=== PATIENT | female | born 1950 | race African-American/Black ===

== ENCOUNTER → 2016-08-09 | Outpatient (CLI) | payer MEDICARE, MEDICAID ==
[2016-03-26 14:23] VITALS: BP 126/71
[~2016-08-09] MED LIST: CYCL10TA2 PO; DOCU-27 PO; DRON2.5C PO; GABA-586 PO; HYDR-2672 PO; HYDR-2679 PO; OMEP20CA9 PO; OXYC-323 PO; OXYC1TAB7 PO; TIZA2CAP3 PO
--- NOTE | 2016-08-09 11:57 | RAD ---
EXAM: Lumbar spine, 3 views. HISTORY: Lower back pain. COMPARISON: 06/22/2016. FINDINGS: Frontal, lateral and coned sacral views of the lumbar spine are obtained. There is instrumented posterior spinal fusion and disc spacer placement with laminectomy decompression at L4-S1. There is straightening of lumbar lordosis. There is levoscoliosis centered at L4. There is degenerative endplate remodeling and facet arthropathy predominantly at the lower lumbar levels. There are multiple surgical clips and anastomotic sutures within the abdomen. There is a minimal anterior wedge deformity of L2, stable in appearance. IMPRESSION: 1. Instrumented using at L4-S1, stable in appearance. 2. Multilevel degenerative change, predominantly at the lower lumbar levels.
== END | disposition home or self-care (01) ==
LOC: RAD 10:56
PROVIDERS: ATTEND Neurological Surgery
DX: M43.26 Fusion of spine, lumbar region (principal); M41.86 Other forms of scoliosis, lumbar region; M12.88 Other specific arthropathies, not elsewhere classified, other specified site
CPT/HCPCS: 72100

== ENCOUNTER → 2016-08-31 | Outpatient (CLI) | payer MEDICARE, MEDICAID ==
[2016-03-26 14:23] VITALS: BP 126/71
--- NOTE | 2016-08-31 16:09 | KCIC ---
PROCEDURE CT lumbar spine without contrast. HISTORY Right radiculopathy. Post lumbar surgery 5 months ago. TECHNIQUE Axial images and coronal and sagittal re-formatted images are provided. One or more of the following individualized dose reduction techniques were utilized for this exam: 1. Automated exposure control. 2. Adjustment of the mA and/or kV according to patient's size. 3. Use of iterative reconstruction technique. COMPARISON March 24, 2016. FINDINGS There is pedicle screw and ahsan instrumentation with interbody bone cage devices at L4 through S1. Partial laminectomy was performed at L4-L5. Hardware is well-seated although bone cages do not yet appear incorporated. There is no perihardware lucency. There is straightening of lumbar lordosis but no subluxation. Vertebral body height is maintained throughout. Endplate irregularity is noted at L4-L5 which may be degenerative. Appearance is similar to prior. Degenerative disc disease and facet and ligamentum flavum hypertrophy are noted at L2-L3 without definite canal or foraminal compromise. Similar findings are noted at L3-L4. Streak artifact limits evaluation below L4. There is atheromatous disease in the abdominal aorta without aneurysm. There are clips in the gallbladder fossa and in the upper abdomen. IMPRESSION Postoperative findings from L4 through S1, without appreciable change from March. Electronically signed by: Abdiel Hwang MD (Aug 31, 2016 16:07:27)
== END | disposition home or self-care (01) ==
LOC: KCIC CT 12:17
PROVIDERS: ATTEND Neurological Surgery
DX: M54.16 Radiculopathy, lumbar region (principal); Z98.890 Other specified postprocedural states
CPT/HCPCS: 72131

== ENCOUNTER 2016-10-05 10:33 | Inpatient (IN) | payer MEDICARE, MEDICAID ==
[~2016-10-05] VITALS: Ht 160 cm; Wt 42.0 kg
--- NOTE | 2016-10-05 11:06 | EKG ---
[facility] [address] [place] [address] Test Date: 2016-10-05 Test Time: 10:59:07 Pat Name: MATA WILLINGHAM Department: Room: Gender: F Medical Lab Director: : 1950 Requested By: ADRYAN TURNER Order Number: [id number] Reading MD: Caryl Simon Measurements Intervals [place] Rate: 67 P: 56 NC: 148 QRS: 19 QRSD: 68 T: 68 QT: 402 QTc: 428 Interpretive Statements SINUS RHYTHM LEFT ATRIAL ABNORMALITY QRS(T) CONTOUR ABNORMALITY CONSISTENT WITH ANTEROSEPTAL INFARCT AGE UNDETERMINED T ABNORMALITY IN HIGH LATERAL LEADS Electronically Signed On 10-07-2016 21:49:31 CDT by Caryl Simon
[2016-10-05] MEDS ORDERED: fentaNYL PF VIAL 100 MCG/2 ML VIAL IV PRN ×2 (11:30→15:15)
--- NOTE | 2016-10-05 11:45 | RAD ---
Indication shortness of air. A single view of the chest was obtained and is compared to an examination 02/11/2016. The heart and pulmonary vessels appear normal. The lungs are clear of acute infiltrates. Nipple shadows are noted. There has not been a significant change in the appearance of the chest compared to the prior exam. IMPRESSION: No acute or focal process. No significant change
[2016-10-05 12:39] LABS: BASO # 0.1 x10^3/uL (0.0-0.2); BASO % 1 % (0-3); EOS % 1 % (0-3); HEMATOCRIT 33.6 % (36.0-47.0); HEMOGLOBIN 10.5 g/dL (12.0-15.5); LYMPH # 1.4 x10^3/uL (1.0-4.8); LYMPH % 26 % (24-48); MEAN CORPUSCULAR HEMOGLOBIN 26 pg (25-35); MEAN CORPUSCULAR HGB CONC 31 g/dL (31-37); MEAN CORPUSCULAR VOLUME 82 fL (79-100); MONO % 6 % (0-9); NEUT % 67 % (31-73); PLATELET COUNT 318 x10^3/uL (140-400); RED BLOOD COUNT 4.09 x10^6/uL (3.50-5.40); RED CELL DISTRIBUTION WIDTH 19.2 % (11.5-14.5); WHITE BLOOD COUNT 5.5 x10^3/uL (4.0-11.0)
[2016-10-05 12:52] LABS: BILIRUBIN,URINE NEGATIVE (NEG); GLUCOSE,URINE NEGATIVE (NEG); NITRITE,URINE NEGATIVE (NEG); PROTEIN,URINE NEGATIVE (NEG-TRACE); UROBILINOGEN,URINE 0.2 mg/dL (0.2 mg/dL)
[2016-10-05 12:53] LABS: CALCIUM 9.2 mg/dL (8.5-10.1); CREATININE 0.8 mg/dL (0.6-1.0); GFR 87.1; POTASSIUM 4.5 mmol/L (3.5-5.1)
[2016-10-05 12:55] LABS: ALBUMIN 3.4 g/dL (3.4-5.0); ALBUMIN/GLOBULIN RATIO 0.9 (1.0-1.7); TOTAL BILIRUBIN 0.4 mg/dL (0.2-1.0); TOTAL PROTEIN 7.4 g/dL (6.4-8.2)
[2016-10-05 12:59] LABS: BACTERIA,URINE 0 /HPF (0-FEW); RBC,URINE 0 /HPF (0-2); SQUAMOUS EPITHELIAL CELL,UR FEW /LPF; WBC,URINE 0 /HPF (0-4)
[2016-10-05] MEDS ORDERED: IPRATRPIUM/ALBUTEROL 0.5/2.5MG 3 ML NEBU. NEB ONE (14:00)
--- NOTE | 2016-10-05 15:01 | ED.ADGEN ---
Past Medical History Past Medical History: Bronchitis, Hypertension, Other Additional Past Medical Histor: chronic back pain Past Surgical History: Hysterectomy Additional Past Surgical Histo: 3 lumbar and 1 cervical back surgery for herniated disc Alcohol Use: None Drug Use: None Adult General Chief Complaint Chief Complaint: SHORTNESS OF BREATH HPI HPI Patient is a 66 year old and, history of back pain, bronchitis, who presents to the emergency department with a complaint of worsening shortness of breath and cough, also generalized weakness and occasional chest pain. Patient was seen by her primary care provider last week, that time was told that she was experiencing a prolonged cold. Patient states that her shortness of breath has become worse, and generalized weakness is worse, also generalized malaise and body aches with worsening of her chronic low back pain. Patient denies any focal weakness numbness or tingling, denies any nausea or vomiting, any injuries. Review of Systems Review of Systems Constitutional: Denies fever or chills. [] Eyes: Denies change in visual acuity. [] HENT: Denies nasal congestion or sore throat. [] Respiratory: Denies cough or shortness of breath. [] Cardiovascular: Denies chest pain or edema. [] GI: Denies abdominal pain, nausea, vomiting, bloody stools or diarrhea. [] : Denies dysuria. [] Musculoskeletal: Denies back pain or joint pain. [] Integument: Denies rash. [] Neurologic: Denies headache, focal weakness or sensory changes. [] Endocrine: Denies polyuria or polydipsia. [] Lymphatic: Denies swollen glands. [] Psychiatric: Denies depression or anxiety. [] Current Medications Current Medications Current Medications Medications (Trade) Dose Ordered Sig/Rosalind Start Time Stop Time Status Last Admin Dose Admin Acetaminophen (Tylenol) 650 mg PRN Q4HRS PRN 10/05/16 15:15 10/06/16 15:14 UNV Albuterol/ Ipratropium (Duoneb) 3 ml RTQID 10/05/16 16:00 10/06/16 15:59 UNV Fentanyl Citrate (Fentanyl 2ml Vial) 50 mcg PRN Q2HR PRN 10/05/16 15:15 10/06/16 15:14 UNV Nitroglycerin (Nitrostat) 0.4 mg PRN Q5MIN PRN 10/05/16 15:15 10/06/16 15:14 UNV Ondansetron HCl (Zofran) 4 mg PRN Q8HRS PRN 10/05/16 15:15 10/06/16 15:14 UNV Allergies Allergies Allergies Coded Allergies Type Severity Reaction Last Updated Verified pentazocine Allergy Intermediate 03/24/16 No codeine Adverse Reaction Mild Nausea and Vomiting 03/24/16 Yes Physical Exam Physical Exam Constitutional: Well developed, well nourished, no acute distress, non-toxic appearance. [] HENT: Normocephalic, atraumatic, bilateral external ears normal, oropharynx moist, no oral exudates, nose normal. [] Eyes: PERRLA, EOMI, conjunctiva normal, no discharge. [] Neck: Normal range of motion, no tenderness, supple, no stridor. [] Cardiovascular:Heart rate regular rhythm, no murmur, S1, S2, no rubs or gallops. [] Lungs & Thorax: Bilateral breath sounds clear to auscultation, no wheezing, rhonchi, rales. Crepitus or tenderness. [] Abdomen: Bowel sounds normal, soft, no tenderness, no rebound, no rigidity, no guarding, no masses, no pulsatile masses. [] Skin: Warm, dry, no erythema, no rash. [] Back: No tenderness, no CVA tenderness. [] Extremities: No tenderness, no cyanosis, no clubbing, ROM intact, no edema. Negative Homans sign [] Neurologic: Alert and oriented X 3, normal motor function, normal sensory function, no focal deficits noted. [] Psychologic: Affect normal, judgement normal, mood normal. [] Current Patient Data Vital Signs Vital Signs Date Time Temp Pulse Resp B/P (MAP) Pulse Ox O2 Delivery O2 Flow Rate FiO2 10/05/16 14:10 100 Room Air 10/05/16 12:50 18 10/05/16 11:10 98.2 68 168/73 (104) 98.2 Lab Values Laboratory Tests Test 10/05/16 11:07 10/05/16 12:45 White Blood Count 5.5 x10^3/uL (4.0-11.0) Red Blood Count 4.09 x10^6/uL (3.50-5.40) Hemoglobin 10.5 g/dL (12.0-15.5) L Hematocrit 33.6 % (36.0-47.0) L Mean Corpuscular Volume 82 fL (79-100) Mean Corpuscular Hemoglobin 26 pg (25-35) Mean Corpuscular Hemoglobin Concent 31 g/dL (31-37) Red Cell Distribution Width 19.2 % (11.5-14.5) H Platelet Count 318 x10^3/uL (140-400) Neutrophils (%) (Auto) 67 % (31-73) Lymphocytes (%) (Auto) 26 % (24-48) Monocytes (%) (Auto) 6 % (0-9) Eosinophils (%) (Auto) 1 % (0-3) Basophils (%) (Auto) 1 % (0-3) Neutrophils # (Auto) 3.7 x10^3uL (1.8-7.7) Lymphocytes # (Auto) 1.4 x10^3/uL (1.0-4.8) Monocytes # (Auto) 0.3 x10^3/uL (0.0-1.1) Eosinophils # (Auto) 0.0 x10^3/uL (0.0-0.7) Basophils # (Auto) 0.1 x10^3/uL (0.0-0.2) Sodium Level 140 mmol/L (136-145) Potassium Level 4.5 mmol/L (3.5-5.1) Chloride Level 102 mmol/L (98-107) Carbon Dioxide Level 26 mmol/L (21-32) Anion Gap 12 (6-14) Blood Urea Nitrogen 9 mg/dL (7-20) Creatinine 0.8 mg/dL (0.6-1.0) Estimated GFR (Cockcroft-Gault) 87.1 BUN/Creatinine Ratio 11 (6-20) Glucose Level 112 mg/dL (70-99) H Calcium Level 9.2 mg/dL (8.5-10.1) Total Bilirubin 0.4 mg/dL (0.2-1.0) Aspartate Amino Transferase (AST) 32 U/L (15-37) Alanine Aminotransferase (ALT) 21 U/L (14-59) Alkaline Phosphatase 92 U/L (46-116) Troponin I Quantitative < 0.017 ng/mL (0.000-0.055) UR-Gqw-Y-Type Natriuretic Peptide 246 pg/mL (0-124) H Total Protein 7.4 g/dL (6.4-8.2) Albumin 3.4 g/dL (3.4-5.0) Albumin/Globulin Ratio 0.9 (1.0-1.7) L Urine Collection Type Unknown Urine Color Yellow Urine Clarity Clear Urine pH 7.0 Urine Specific [place] 1.010 Urine Protein Negative mg/dL (NEG-TRACE) Urine Glucose (UA) Negative mg/dL (NEG) Urine Ketones (Stick) Negative mg/dL (NEG) Urine Blood Negative (NEG) Urine Nitrite Negative (NEG) Urine Bilirubin Negative (NEG) Urine Urobilinogen Dipstick 0.2 mg/dL (0.2 mg/dL) Urine Leukocyte Esterase Negative (NEG) Urine RBC 0 /HPF (0-2) Urine WBC 0 /HPF (0-4) Urine Squamous Epithelial Cells Few /LPF Urine Bacteria 0 /HPF (0-FEW) Laboratory Tests 10/05/16 11:07 Laboratory Tests 10/05/16 11:07 EKG EKG EC: [] Sinus rhythm, heart rate 67 bpm, upright axis, QTC of 428, UT 148 , QRS 68, patient with contour normality is noted in the lateral leads, possible ventricle hypertrophy, abnormalities as stated, does not meet STEMI criteria. As interpreted by me. No prior for comparison. Radiology/Procedures Radiology/Procedures [][facility] [address] [place] [address] IMAGING REPORT Signed PATIENT: MATA WILLINGHAM ACCOUNT: [id number] : 1950 LOCATION: ER AGE: 66 SEX: F EXAM STATUS: REG ER ORD. PHYSICIAN: ADRYAN TURNER DO REASON: SOB PROCEDURE: PORTABLE CHEST 1V Indication shortness of air. A single view of the chest was obtained and is compared to an examination 02/11/2016. The heart and pulmonary vessels appear normal. The lungs are clear of acute infiltrates. Nipple shadows are noted. There has not been a significant change in the appearance of the chest compared to the prior exam. IMPRESSION: No acute or focal process. No significant change DICTATED and SIGNED BY: KARON BURR MD DATE: 10/05/16 1141 CC: ADRYAN TURNER DO; DICK LAM MD ~ Course & Med Decision Making Course & Med Decision Making Pertinent Labs and Imaging studies reviewed. (See chart for details) Patient's imaging laboratory studies not reveal any acutely concerning findings , although ECG does have some abnormalities, does not meet STEMI criteria, there is no prior for comparison, patient is not experiencing chest pain, and as stated her troponin is negative. Symptoms are persisting for several weeks, patient received another treatment in the ED without improvement, also received IV pain medication for chronic back pain she states has been exacerbated by her cough and other symptoms. I did have a discussion at bedside with patient regarding her normal findings in the ED, however the patient states she still feels extremely weak and short of breath, oxygen saturations remains in the high 90s to 100% room air, straight rate is 18 and unlabored, however after discussion, will admit to the hospital for continued evaluation and monitoring due to patient's continued complaints and feeling of profound weakness. Findings as above discussed with Dr. Arambula internal medicine, patient accepted to her service as a full admission to the medical telemetry floor, will follow serial enzymes and laboratory studies and continue to monitor patient. Dragon Disclaimer Dragon Disclaimer This electronic medical record was generated, in whole or in part, using a voice recognition dictation system. Departure Impression: Primary Impression: SOB (shortness of breath) Disposition: ADMITTED INPATIENT Admitting Physician: Qasim Arambula Condition: IMPROVED ADRYAN TURNER DO October 05, 2016 15:01
[2016-10-05] MEDS ORDERED: NITROGLYCERIN SUBLINGUAL 0.4 MG BOTTLE OF 25. SL PRN (15:15)
[2016-10-05] MEDS ORDERED: ACETAMINOPHEN 325 MG TABLET. PO PRN (15:15)
[2016-10-05] MEDS ORDERED: ONDANSETRON PF 4 MG/2 ML VIAL. IV PRN (15:15)
[2016-10-05] MEDS ORDERED: CYCLOBENZAPRINE 10 MG TABLET. PO PRN (15:30)
[2016-10-05] MEDS ORDERED: HYDROcodone/APAP 10/325 1 TAB TABLET PO PRN (15:30)
[2016-10-05] MEDS ORDERED: ALBUTEROL SULFATE 2.5 MG/3 ML NEBU. NEB PRN (15:30)
--- NOTE | 2016-10-05 15:37 | PDOC1 ---
History and Physical Date of Admission Date of Admission 10/05/16 Identification/Chief Complaint Chief Complaint sob, lower back pain Problems: Source Source: Chart review, Patient History of Present Illness History of Present Illness HPI Patient is a 66 year old and, history of back sx, comes for lower back pain and sob for 2 days, fatigue for months. Pt looks very calm to me, however, she c/o sob anytime, even right now. Some cough with mild yellowish sputum, denies fever, chills, chest pain. She has several back sx before, last time was with dr. Willis last year, on lortab 3 times day. However, pt refused when i offered may increase the po pain meds, and insist IV pain meds now, saying has now pain meds prescription at home and wont need any pain meds when DC. She has been feel generalized fatigue for months, saying her PCP didnot do anything about it. No N/V,. HAs diarrhea for 3 ds, watery, no abd pain. LIving alone, kids come to help. smoker, <1ppd, denies copd Past Medical History Cardiovascular: Hyperlipidemia Pulmonary: COPD CENTRAL NERVOUS SYSTEM: Other GI: GERD, Peptic Ulcer disease Heme/Onc: No pertinent hx Hepatobiliary: No pertinent hx Psych: Anxiety, Depression Rheumatologic: No pertinent hx Infectious disease: No pertinent hx Endocrine: No pertinent hx Past Surgical History Past Surgical History: Cholecystectomy, Hysterectomy, Other Family History Family History: Cancer, Hypertension, Other Social History Smoke: <1 pack per day ALCOHOL: none Drugs: None Current Problem List Problem List Problems Medical Problems: (1) SOB (shortness of breath) Status: Acute Current Medications Current Medications Current Medications Medications (Trade) Dose Ordered Sig/Rosalind Start Time Stop Time Status Last Admin Dose Admin Acetaminophen (Tylenol) 650 mg PRN Q4HRS PRN 10/05/16 15:15 10/06/16 15:14 Acetaminophen/ Hydrocodone Bitart (Lortab 10/325) 1 tab QID PRN 10/05/16 15:30 UNV Albuterol/ Ipratropium (Duoneb) 3 ml RTQID 10/05/16 16:00 10/06/16 15:59 Cyclobenzaprine HCl (Flexeril) 10 mg PRN TID PRN 10/05/16 15:30 Docusate Sodium (Colace) 100 mg BID 10/05/16 21:00 Fentanyl Citrate (Fentanyl 2ml Vial) 50 mcg PRN Q2HR PRN 10/05/16 15:15 10/06/16 15:14 10/05/16 15:19 50 MCG Nitroglycerin (Nitrostat) 0.4 mg PRN Q5MIN PRN 10/05/16 15:15 10/06/16 15:14 Non-Formulary Medication 1 cap DAILY 10/06/16 09:00 UNV Ondansetron HCl (Zofran) 4 mg PRN Q8HRS PRN 10/05/16 15:15 10/06/16 15:14 Allergies Allergies Allergies Coded Allergies Type Severity Reaction Last Updated Verified pentazocine Allergy Intermediate 03/24/16 No codeine Adverse Reaction Mild Nausea and Vomiting 03/24/16 Yes ROS Review of System CONSTITUTIONAL: No fever or chills EYES: No recent changes SKIN: No rash or itching CARDIOVASCULAR: No chest pain, syncope, palpitations, or edema RESPIRATORY: No SOB or cough GASTROINTESTINAL: No nausea, vomiting or abdominal pain NEUROLOGICAL: No headaches or weakness ENDOCRINE: No cold or heat intolerance GENITOURINARY: No urgency or frequency of urination MUSCULOSKELETAL: No back pain or joint pain LYMPHATICS: No enlarged lymph nodes PSYCHIATRIC: No anxiety or depression Physical Exam Physical Exam GEN.: No apparent distress. Alert and oriented. looks tired HEENT: Head is normocephalic, atraumatic NECK: Supple. LUNGS: Clear to auscultation. HEART: RRR, S1, S2 present. Peripheral pulses intact ABDOMEN: Soft, nontender. Positive bowel sounds. EXTREMITIES: Without any cyanosis. NEUROLOGIC: Normal speech, normal tone PSYCHIATRIC: Normal affect, normal mood. SKIN: No ulcerations Vitals Vitals Vital Signs Date Time Temp Pulse Resp B/P (MAP) Pulse Ox O2 Delivery O2 Flow Rate FiO2 10/05/16 15:19 20 99 Room Air 10/05/16 11:10 98.2 68 168/73 (104) 98.2 Labs Labs Laboratory Tests Test 10/05/16 11:07 10/05/16 12:45 White Blood Count 5.5 x10^3/uL (4.0-11.0) Red Blood Count 4.09 x10^6/uL (3.50-5.40) Hemoglobin 10.5 g/dL (12.0-15.5) Hematocrit 33.6 % (36.0-47.0) Mean Corpuscular Volume 82 fL (79-100) Mean Corpuscular Hemoglobin 26 pg (25-35) Mean Corpuscular Hemoglobin Concent 31 g/dL (31-37) Red Cell Distribution Width 19.2 % (11.5-14.5) Platelet Count 318 x10^3/uL (140-400) Neutrophils (%) (Auto) 67 % (31-73) Lymphocytes (%) (Auto) 26 % (24-48) Monocytes (%) (Auto) 6 % (0-9) Eosinophils (%) (Auto) 1 % (0-3) Basophils (%) (Auto) 1 % (0-3) Neutrophils # (Auto) 3.7 x10^3uL (1.8-7.7) Lymphocytes # (Auto) 1.4 x10^3/uL (1.0-4.8) Monocytes # (Auto) 0.3 x10^3/uL (0.0-1.1) Eosinophils # (Auto) 0.0 x10^3/uL (0.0-0.7) Basophils # (Auto) 0.1 x10^3/uL (0.0-0.2) Sodium Level 140 mmol/L (136-145) Potassium Level 4.5 mmol/L (3.5-5.1) Chloride Level 102 mmol/L (98-107) Carbon Dioxide Level 26 mmol/L (21-32) Anion Gap 12 (6-14) Blood Urea Nitrogen 9 mg/dL (7-20) Creatinine 0.8 mg/dL (0.6-1.0) Estimated GFR (Cockcroft-Gault) 87.1 BUN/Creatinine Ratio 11 (6-20) Glucose Level 112 mg/dL (70-99) Calcium Level 9.2 mg/dL (8.5-10.1) Total Bilirubin 0.4 mg/dL (0.2-1.0) Aspartate Amino Transf (AST/SGOT) 32 U/L (15-37) Alanine Aminotransferase (ALT/SGPT) 21 U/L (14-59) Alkaline Phosphatase 92 U/L (46-116) Troponin I Quantitative < 0.017 ng/mL (0.000-0.055) [id number]-[id number]-Type Natriuretic Peptide 246 pg/mL (0-124) Total Protein 7.4 g/dL (6.4-8.2) Albumin 3.4 g/dL (3.4-5.0) Albumin/Globulin Ratio 0.9 (1.0-1.7) Urine Collection Type Unknown Urine Color Yellow Urine Clarity Clear Urine pH 7.0 Urine Specific [place] 1.010 Urine Protein Negative mg/dL (NEG-TRACE) Urine Glucose (UA) Negative mg/dL (NEG) Urine Ketones (Stick) Negative mg/dL (NEG) Urine Blood Negative (NEG) Urine Nitrite Negative (NEG) Urine Bilirubin Negative (NEG) Urine Urobilinogen Dipstick 0.2 mg/dL (0.2 mg/dL) Urine Leukocyte Esterase Negative (NEG) Urine RBC 0 /HPF (0-2) Urine WBC 0 /HPF (0-4) Urine Squamous Epithelial Cells Few /LPF Urine Bacteria 0 /HPF (0-FEW) Laboratory Tests Test 10/05/16 11:07 10/05/16 12:45 White Blood Count 5.5 x10^3/uL (4.0-11.0) Red Blood Count 4.09 x10^6/uL (3.50-5.40) Hemoglobin 10.5 g/dL (12.0-15.5) Hematocrit 33.6 % (36.0-47.0) Mean Corpuscular Volume 82 fL (79-100) Mean Corpuscular Hemoglobin 26 pg (25-35) Mean Corpuscular Hemoglobin Concent 31 g/dL (31-37) Red Cell Distribution Width 19.2 % (11.5-14.5) Platelet Count 318 x10^3/uL (140-400) Neutrophils (%) (Auto) 67 % (31-73) Lymphocytes (%) (Auto) 26 % (24-48) Monocytes (%) (Auto) 6 % (0-9) Eosinophils (%) (Auto) 1 % (0-3) Basophils (%) (Auto) 1 % (0-3) Neutrophils # (Auto) 3.7 x10^3uL (1.8-7.7) Lymphocytes # (Auto) 1.4 x10^3/uL (1.0-4.8) Monocytes # (Auto) 0.3 x10^3/uL (0.0-1.1) Eosinophils # (Auto) 0.0 x10^3/uL (0.0-0.7) Basophils # (Auto) 0.1 x10^3/uL (0.0-0.2) Sodium Level 140 mmol/L (136-145) Potassium Level 4.5 mmol/L (3.5-5.1) Chloride Level 102 mmol/L (98-107) Carbon Dioxide Level 26 mmol/L (21-32) Anion Gap 12 (6-14) Blood Urea Nitrogen 9 mg/dL (7-20) Creatinine 0.8 mg/dL (0.6-1.0) Estimated GFR (Cockcroft-Gault) 87.1 BUN/Creatinine Ratio 11 (6-20) Glucose Level 112 mg/dL (70-99) Calcium Level 9.2 mg/dL (8.5-10.1) Total Bilirubin 0.4 mg/dL (0.2-1.0) Aspartate Amino Transf (AST/SGOT) 32 U/L (15-37) Alanine Aminotransferase (ALT/SGPT) 21 U/L (14-59) Alkaline Phosphatase 92 U/L (46-116) Troponin I Quantitative < 0.017 ng/mL (0.000-0.055) IA-Jbk-A-Type Natriuretic Peptide 246 pg/mL (0-124) Total Protein 7.4 g/dL (6.4-8.2) Albumin 3.4 g/dL (3.4-5.0) Albumin/Globulin Ratio 0.9 (1.0-1.7) Urine Collection Type Unknown Urine Color Yellow Urine Clarity Clear Urine pH 7.0 Urine Specific [place] 1.010 Urine Protein Negative mg/dL (NEG-TRACE) Urine Glucose (UA) Negative mg/dL (NEG) Urine Ketones (Stick) Negative mg/dL (NEG) Urine Blood Negative (NEG) Urine Nitrite Negative (NEG) Urine Bilirubin Negative (NEG) Urine Urobilinogen Dipstick 0.2 mg/dL (0.2 mg/dL) Urine Leukocyte Esterase Negative (NEG) Urine RBC 0 /HPF (0-2) Urine WBC 0 /HPF (0-4) Urine Squamous Epithelial Cells Few /LPF Urine Bacteria 0 /HPF (0-FEW) VTE Prophylaxis Ordered VTE Prophylaxis Devices: Yes VTE Pharmacological Prophylaxi: Yes Assessment/Plan Assessment/Plan 1. sob, likely 2/2 anxiety 2. mild bronchitis 3. worsening chronic lower back pain with h/o back sx 4. fatigure 5. htn 6. tobaccoism 7. normacytic anemia 8. possible iv pain meds seeker plan: 1. dr. Turner consult 2. pain control ptot 3. check tsh, vitb12, fa, vitd, cdiff ferritin, iron panel 4. duoneb, albuterol prn dvt ppx NORMA VASQUEZ MD October 05, 2016 15:37
[2016-10-05] MEDS: IPRATRPIUM/ALBUTEROL 0.5/2.5MG 3 ML NEBU. NEB SCH ×2 (15:52→20:57)
[2016-10-05] MEDS ORDERED: IPRATRPIUM/ALBUTEROL 0.5/2.5MG 3 ML NEBU. NEB SCH (16:00)
[2016-10-05] MEDS: HYDROcodone/APAP 10/325 1 TAB TABLET PO PRN (17:11)
[2016-10-05 17:41] VITALS: BP 140/75
[2016-10-05 19:00] VITALS: BP 145/71
[2016-10-05] MEDS: MORPHINE SULFATE 2 MG/ML DISP.SYRIN. IV PRN (19:03)
[2016-10-05] MEDS: DOCUSATE SODIUM 100 MG CAPSULE. PO SCH (20:33)
[2016-10-05] MEDS: GABAPENTIN 300 MG CAPSULE. PO SCH (20:33)
[2016-10-05 22:38] VITALS: BP 143/79
[2016-10-06] MEDS: MORPHINE SULFATE 2 MG/ML DISP.SYRIN. IV PRN ×6 (00:36→22:24)
[2016-10-06] MEDS: HYDROcodone/APAP 10/325 1 TAB TABLET PO PRN ×2 (03:33→21:15)
[2016-10-06 05:19] LABS: BASO % 1 % (0-3); EOS % 1 % (0-3); HEMATOCRIT 29.8 % (36.0-47.0); HEMOGLOBIN 9.5 g/dL (12.0-15.5); LYMPH # 2.1 x10^3/uL (1.0-4.8); LYMPH % 41 % (24-48); MEAN CORPUSCULAR HEMOGLOBIN 26 pg (25-35); MEAN CORPUSCULAR HGB CONC 32 g/dL (31-37); MEAN CORPUSCULAR VOLUME 82 fL (79-100); MONO % 10 % (0-9); NEUT % 47 % (31-73); PLATELET COUNT 294 x10^3/uL (140-400); RED BLOOD COUNT 3.65 x10^6/uL (3.50-5.40); RED CELL DISTRIBUTION WIDTH 19.1 % (11.5-14.5); WHITE BLOOD COUNT 5.1 x10^3/uL (4.0-11.0)
[2016-10-06 05:48] LABS: CALCIUM 8.9 mg/dL (8.5-10.1); CREATININE 0.7 mg/dL (0.6-1.0); GFR 101.6; POTASSIUM 3.9 mmol/L (3.5-5.1)
[2016-10-06 05:50] LABS: % SAT IRON 8 % (15-34); IRON,SERUM 37 ug/dL (50-170)
--- NOTE | 2016-10-06 05:59 | CONS ---
DATE OF CONSULTATION: 10/05/2016 ATTENDING PHYSICIAN: Soila Arambula M.D. REASON FOR CONSULTATION: The patient was seen at the request of Dr. Arambula for rehab evaluation about her lower back pain. HISTORY OF PRESENT ILLNESS: This is a 66-year-old female with chronic lower back pain status post lumbar spine fusion done by Dr. Willis earlier this year with some help, but still admits some numbness in her right lower extremity. The patient was admitted with increasing shortness of breath for about 2 days and also complains of generalized fatigue. The patient lives in a high-rise apartment and gets around without any assistive devices. She had a back brace, she uses sometimes. The patient denies any trouble with her bowel or bladder control. The patient has been taking hydrocodone 10/325 mg on as-needed basis at least about 90 of them per month; Dr. Amaya, her family physician, is taking care of it. The patient had no stairs for her to manage at home. PAST MEDICAL HISTORY: Includes hyperlipidemia, chronic obstructive pulmonary disease, gastroesophageal reflux disease, peptic ulcer disease, anxiety, depression. 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 The patient is status post cholecystectomy and hysterectomy. FAMILY HISTORY: Carcinoma and hypertension. SOCIAL HISTORY: She smokes about 9-10 cigarettes per day. She has been smoking for several years. ALLERGIES: THE PATIENT IS KNOWN ALLERGIC TO PENTAZOCINE AND CODEINE. PHYSICAL EXAMINATION: Today revealed a middle-aged female. She is alert and oriented to time, place, person and circumstance and follows commands appropriately, moves all 4 extremities voluntarily where she had 4+/5 grade muscle strength and deep tendon reflexes are 1 to 2+ and symmetrical and she had equal perception of touch and pinprick sensation bilaterally except slightly decreased sensory perception over right L5 dermatome area. She had moderate degree of thoracic and lumbar paraspinal muscle spasm with tenderness to palpation in those areas. Straight leg raising test is negative bilaterally. She had painful limited movements of her lumbar spine. She is independent with bed mobility. I have not tested her ambulation skills at this time. Her skin is intact at this time. ASSESSMENT: A middle-aged female with chronic thoracic and lumbar area pain, status post lumbar spine surgery with mild right lumbar radiculitis mainly L5. No evidence of ongoing lumbar radiculopathy. The patient with known hyperlipidemia, chronic obstructive pulmonary disease, still a smoker, gastroesophageal reflux disease, peptic ulcer disease, anxiety, depression. RECOMMENDATIONS: Agree with the plan for physical therapy and occupational therapy to try physical modalities. I have reviewed with her a home program of physical modalities, trigger point massage and relax stretching exercise to her back muscles. Hopefully, home when medically stable with outpatient followup. Dr. Arambula, I appreciate asking me to participate in the care of this interesting patient. I will be glad to follow her with you as needed for her rehabilitation. KIANA ELLISON MD DR: CONNER/loreto JOB#: [id number] / [id number]
[2016-10-06 07:00] VITALS: BP 135/82
[2016-10-06] MEDS: IPRATRPIUM/ALBUTEROL 0.5/2.5MG 3 ML NEBU. NEB SCH ×4 (07:38→19:49)
[2016-10-06] MEDS: ENOXAPARIN 40 MG/0.4 ML SYRINGE. SQ SCH (07:46)
[2016-10-06] MEDS: DOCUSATE SODIUM 100 MG CAPSULE. PO SCH ×2 (07:51→21:00)
[2016-10-06] MEDS: PANTOPRAZOLE 40 MG TABLET.DR. PO SCH (07:51)
[2016-10-06] MEDS: GABAPENTIN 300 MG CAPSULE. PO SCH ×3 (07:51→21:15)
[2016-10-06 09:05] LABS: FOLATE 15.29 ng/ml (3.2-20.0)
--- NOTE | 2016-10-06 09:21 | PDOC2 ---
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 Reports that she has been having increasing productive cough in the last 2 weeks. Has been feeling SOA and has been having generalized body aches. Also in the last 2 days she has been having intermittent left chest pain, nonradiating. This was sharp to pressure and easily reproducible with palpation. No nausea or palpitations. Unfortunately she continue to smoke tobacco and presently she does not have any COPD regimen. Denies nay recent falls, or injury but has been having cold symptoms as well. PAST MEDICAL HISTORY Cardiovascular: CAD (coronary calcifications via CTA 02/10/2017), Hyperlipidemia , Other (PAD High-grade stenosis at the origin of the left external iliac artery via CTA 02/11/2016) Pulmonary: COPD CENTRAL NERVOUS SYSTEM: Periperal neuropathy GI: Constipation, GERD, Peptic Ulcer disease Heme/Onc: Anemia NOS Hepatobiliary: Cholelithiasis Psych: Anxiety, Depression Musculoskeletal: low back pain, Osteoarthritis, Other (lumbar and cervical stenosis) Rheumatologic: No pertinent hx Infectious disease: No pertinent hx ENT: No pertinent hx Renal/: No pertinent hx Endocrine: No pertinent hx Dermatology: No pertinent hx PAST SURGICAL HISTORY Past Surgical History: Arthroscopy (right ankle repair), Cholecystectomy, Hysterectomy, Other (lumbar and cervical fusion; abdominal surgery) FAMILY HISTORY Family History Cancer (lung and gastric in parents), Hypertension, Other (cerebral aneurysm) SOCIAL HISTORY Social History Smoke: 1 pack per day (X 50 years) ALCOHOL: none Drugs: None Lives: with Family CURRENT MEDICATIONS CURRENT MEDICATIONS Current Medications Medications (Trade) Dose Ordered Sig/Rosalind Route PRN Reason Start Time Stop Time Status Last Admin Dose Admin Fentanyl Citrate (Fentanyl 2ml Vial) 25 mcg PRN Q15MIN PRN IV PAIN GREATER THAN 3/10 10/05/16 11:30 10/06/16 11:29 10/05/16 12:50 Albuterol/ Ipratropium (Duoneb) 3 ml 1X ONCE NEB 10/05/16 14:00 10/05/16 14:03 DC 10/05/16 14:10 Fentanyl Citrate (Fentanyl 2ml Vial) 50 mcg PRN Q2HR PRN IV PAIN 10/05/16 15:15 10/06/16 15:14 10/05/16 15:19 Acetaminophen/ Hydrocodone Bitart (Lortab 10/325) 1 tab PRN QID PRN PO PAIN 10/05/16 15:30 10/06/16 03:33 Gabapentin (Neurontin) 300 mg TID PO 10/05/16 21:00 10/06/16 07:51 Pantoprazole Sodium (Protonix) 40 mg DAILYAC PO 10/06/16 07:30 10/06/16 07:51 Morphine Sulfate 2 mg PRN Q4HRS PRN IV PAIN 10/05/16 15:30 10/06/16 05:07 Albuterol/ Ipratropium (Duoneb) 3 ml RTQID NEB 10/05/16 16:00 10/06/16 07:38 ALLERGIES ALLERGIES: Coded Allergies: pentazocine (Verified Allergy, Intermediate, 10/06/16) codeine (Verified Adverse Reaction, Mild, Nausea and Vomiting, 03/24/16) doesnt think she is still allergic to this ROS Review of System 14 point ROS evaluated with pertinent positives noted per HPI PHYSICAL EXAM General: Alert, Oriented X3, Cooperative, No acute distress HEENT: Atraumatic, Mucous membr. moist/pink Lungs: Other (basilar crackles) Heart: Regular rate (SR), Normal S1, Normal S2, Other (2/6 systolic murmur to LLS border) Abdomen: Soft, No tenderness Extremities: No cyanosis, No edema Skin: No breakdown, No significant lesion Neuro: Normal speech, Sensation intact Psych/Mental Status: Mental status NL, Mood NL MUSCULOSKELETAL: Osteoarthritic changes both hands VITALS VITALS Vital Signs Date Time Temp Pulse Resp B/P (MAP) Pulse Ox O2 Delivery O2 Flow Rate FiO2 10/06/16 08:00 Room Air 10/06/16 07:39 96 10/06/16 07:00 98.2 69 16 135/82 (99) 98.2 LABS Lab: Laboratory Tests Test 10/05/16 11:07 10/05/16 12:45 10/05/16 20:15 10/06/16 04:50 White Blood Count 5.5 x10^3/uL (4.0-11.0) 5.1 x10^3/uL (4.0-11.0) Red Blood Count 4.09 x10^6/uL (3.50-5.40) 3.65 x10^6/uL (3.50-5.40) Hemoglobin 10.5 g/dL (12.0-15.5) 9.5 g/dL (12.0-15.5) Hematocrit 33.6 % (36.0-47.0) 29.8 % (36.0-47.0) Mean Corpuscular Volume 82 fL (79-100) 82 fL (79-100) Mean Corpuscular Hemoglobin 26 pg (25-35) 26 pg (25-35) Mean Corpuscular Hemoglobin Concent 31 g/dL (31-37) 32 g/dL (31-37) Red Cell Distribution Width 19.2 % (11.5-14.5) 19.1 % (11.5-14.5) Platelet Count 318 x10^3/uL (140-400) 294 x10^3/uL (140-400) Neutrophils (%) (Auto) 67 % (31-73) 47 % (31-73) Lymphocytes (%) (Auto) 26 % (24-48) 41 % (24-48) Monocytes (%) (Auto) 6 % (0-9) 10 % (0-9) Eosinophils (%) (Auto) 1 % (0-3) 1 % (0-3) Basophils (%) (Auto) 1 % (0-3) 1 % (0-3) Neutrophils # (Auto) 3.7 x10^3uL (1.8-7.7) 2.4 x10^3uL (1.8-7.7) Lymphocytes # (Auto) 1.4 x10^3/uL (1.0-4.8) 2.1 x10^3/uL (1.0-4.8) Monocytes # (Auto) 0.3 x10^3/uL (0.0-1.1) 0.5 x10^3/uL (0.0-1.1) Eosinophils # (Auto) 0.0 x10^3/uL (0.0-0.7) 0.1 x10^3/uL (0.0-0.7) Basophils # (Auto) 0.1 x10^3/uL (0.0-0.2) 0.0 x10^3/uL (0.0-0.2) Sodium Level 140 mmol/L (136-145) 142 mmol/L (136-145) Potassium Level 4.5 mmol/L (3.5-5.1) 3.9 mmol/L (3.5-5.1) Chloride Level 102 mmol/L (98-107) 105 mmol/L (98-107) Carbon Dioxide Level 26 mmol/L (21-32) 28 mmol/L (21-32) Anion Gap 12 (6-14) 9 (6-14) Blood Urea Nitrogen 9 mg/dL (7-20) 10 mg/dL (7-20) Creatinine 0.8 mg/dL (0.6-1.0) 0.7 mg/dL (0.6-1.0) Estimated GFR (Cockcroft-Gault) 87.1 101.6 BUN/Creatinine Ratio 11 (6-20) Glucose Level 112 mg/dL (70-99) 99 mg/dL (70-99) Calcium Level 9.2 mg/dL (8.5-10.1) 8.9 mg/dL (8.5-10.1) Total Bilirubin 0.4 mg/dL (0.2-1.0) Aspartate Amino Transf (AST/SGOT) 32 U/L (15-37) Alanine Aminotransferase (ALT/SGPT) 21 U/L (14-59) Alkaline Phosphatase 92 U/L (46-116) Troponin I Quantitative < 0.017 ng/mL (0.000-0.055) < 0.017 ng/mL (0.000-0.055) < 0.017 ng/mL (0.000-0.055) US-Age-V-Type Natriuretic Peptide 246 pg/mL (0-124) Total Protein 7.4 g/dL (6.4-8.2) Albumin 3.4 g/dL (3.4-5.0) Albumin/Globulin Ratio 0.9 (1.0-1.7) Urine Collection Type Unknown Urine Color Yellow Urine Clarity Clear Urine pH 7.0 Urine Specific [place] 1.010 Urine Protein Negative mg/dL (NEG-TRACE) Urine Glucose (UA) Negative mg/dL (NEG) Urine Ketones (Stick) Negative mg/dL (NEG) Urine Blood Negative (NEG) Urine Nitrite Negative (NEG) Urine Bilirubin Negative (NEG) Urine Urobilinogen Dipstick 0.2 mg/dL (0.2 mg/dL) Urine Leukocyte Esterase Negative (NEG) Urine RBC 0 /HPF (0-2) Urine WBC 0 /HPF (0-4) Urine Squamous Epithelial Cells Few /LPF Urine Bacteria 0 /HPF (0-FEW) Iron Level 37 ug/dL (50-170) Total Iron Binding Capacity 472 ug/dL (250-450) Iron Saturation 8 % (15-34) Ferritin 12 ng/mL (8-252) Vitamin B12 Level 437 pg/mL (247-911) Serum Folate 15.29 ng/ml (3.2-20.0) Thyroid Stimulating Hormone (TSH) 1.804 uIU/mL (0.358-3.74) IMAGES IMAGES 02/10/2017 CTA IMPRESSION: 1. Moderate calcific plaquing of the thoracic and abdominal aorta and their branches without evidence of dissection or aneurysm. 2. High-grade stenosis at the origin of the left external iliac artery. 3. Coronary artery calcifications. 4. Emphysema. 5. Mild biliary ductal dilatation is probably secondary to the postcholecystectomy state. Correlation with laboratory data is suggested to evaluate the significance of this finding. ECHOCARDIOGRAM ECHOCARDIOGRAM <Conclusion> Left ventricle systolic function is normal. The Ejection Fraction is 60-65%. There is normal LV segmental wall motion. Mild LVH No significant valvular disease. DATE: 02/11/16 1547 STRESS TEST STRESS TEST Conclusion 1. No evidence of stress induced EKG changes. 2. Normal myocardial perfusion study. 3. Normal EF at > 70%. 4. Low risk study DATE: 02/12/16 1138 ASSESSMENT/PLAN ASSESSMENT/PLAN 1. AECOPD with continue tobaccoism 2. Atypical CP: troponin series normal, EKG SR no acute changes by comparison, doubt ACS. Easily reproducible Pleuritic/MSK 3. CAD: coronary calcifications via recent CTA. Recent MPI as noted above normal. 4. PAD: High-grade stenosis at the origin of the left external iliac artery via CTA 02/11/2016. Neurovascular status intact 5. HLP: lipids well controlled with LDL at 55 and HDL 129 6. Lumbar and cervical stenosis with radiculopathy Recommendations 1. Start ECASA 81 mg daily 2. No further cardiac workup 3. No home COPD treatments, defer to PCP 4. Smoking cessation 5. Encouraged to follow up in our office to further evaluate her PAD. Problems: ANN-MARIE MAGALLANES MD 10/06/16 2154: CARDIAC CONSULT ALLERGIES ALLERGIES: Coded Allergies: pentazocine (Verified Allergy, Intermediate, 10/06/16) codeine (Verified Adverse Reaction, Mild, Nausea and Vomiting, 03/24/16) doesnt think she is still allergic to this ASSESSMENT/PLAN ASSESSMENT/PLAN Pt. seen and examined. 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 66 y.o woman who presents with weight loss, fatigue and MSK chest pain Normal cardiac exam. Labs and previous tests reviewed. No further CV testing. Thanks for consult. Non-cardiac chest pain. Problems: SOLO SUNSHINE APRN October 06, 2016 09:21 ANN-MARIE MAGALLANES MD October 06, 2016 21:54
[2016-10-06 09:41] LABS: CHOLESTEROL/HDL RATIO 1.5
--- NOTE | 2016-10-06 09:46 | PDOC ---
PROGRESS NOTES Subjective Subjective She admits tightness feeling in her chest. Objective Objective Vital Signs Date Time Temp Pulse Resp B/P (MAP) Pulse Ox O2 Delivery O2 Flow Rate FiO2 10/06/16 09:32 20 96 Room Air 10/06/16 07:00 98.2 69 135/82 (99) 98.2 Intake and Output 10/06/16 07:00 Intake Total 500 ml Balance 500 ml Intake Oral 500 ml # Voids 8 Physical Exam Physical Exam She is alert and comfortable and is independent with her mobility. Assessment Assessment Problems Medical Problems: (1) SOB (shortness of breath) Status: Acute Plan Plan of Usp when medically stable with out patient follow up. Comment Review of Relevant I have reviewed the following items tamara (where applicable) has been applied. Labs Laboratory Tests Test 10/05/16 11:07 10/05/16 12:45 10/05/16 20:15 10/06/16 04:50 White Blood Count 5.5 x10^3/uL (4.0-11.0) 5.1 x10^3/uL (4.0-11.0) Red Blood Count 4.09 x10^6/uL (3.50-5.40) 3.65 x10^6/uL (3.50-5.40) Hemoglobin 10.5 g/dL (12.0-15.5) 9.5 g/dL (12.0-15.5) Hematocrit 33.6 % (36.0-47.0) 29.8 % (36.0-47.0) Mean Corpuscular Volume 82 fL (79-100) 82 fL (79-100) Mean Corpuscular Hemoglobin 26 pg (25-35) 26 pg (25-35) Mean Corpuscular Hemoglobin Concent 31 g/dL (31-37) 32 g/dL (31-37) Red Cell Distribution Width 19.2 % (11.5-14.5) 19.1 % (11.5-14.5) Platelet Count 318 x10^3/uL (140-400) 294 x10^3/uL (140-400) Neutrophils (%) (Auto) 67 % (31-73) 47 % (31-73) Lymphocytes (%) (Auto) 26 % (24-48) 41 % (24-48) Monocytes (%) (Auto) 6 % (0-9) 10 % (0-9) Eosinophils (%) (Auto) 1 % (0-3) 1 % (0-3) Basophils (%) (Auto) 1 % (0-3) 1 % (0-3) Neutrophils # (Auto) 3.7 x10^3uL (1.8-7.7) 2.4 x10^3uL (1.8-7.7) Lymphocytes # (Auto) 1.4 x10^3/uL (1.0-4.8) 2.1 x10^3/uL (1.0-4.8) Monocytes # (Auto) 0.3 x10^3/uL (0.0-1.1) 0.5 x10^3/uL (0.0-1.1) Eosinophils # (Auto) 0.0 x10^3/uL (0.0-0.7) 0.1 x10^3/uL (0.0-0.7) Basophils # (Auto) 0.1 x10^3/uL (0.0-0.2) 0.0 x10^3/uL (0.0-0.2) Sodium Level 140 mmol/L (136-145) 142 mmol/L (136-145) Potassium Level 4.5 mmol/L (3.5-5.1) 3.9 mmol/L (3.5-5.1) Chloride Level 102 mmol/L (98-107) 105 mmol/L (98-107) Carbon Dioxide Level 26 mmol/L (21-32) 28 mmol/L (21-32) Anion Gap 12 (6-14) 9 (6-14) Blood Urea Nitrogen 9 mg/dL (7-20) 10 mg/dL (7-20) Creatinine 0.8 mg/dL (0.6-1.0) 0.7 mg/dL (0.6-1.0) Estimated GFR (Cockcroft-Gault) 87.1 101.6 BUN/Creatinine Ratio 11 (6-20) Glucose Level 112 mg/dL (70-99) 99 mg/dL (70-99) Calcium Level 9.2 mg/dL (8.5-10.1) 8.9 mg/dL (8.5-10.1) Total Bilirubin 0.4 mg/dL (0.2-1.0) Aspartate Amino Transf (AST/SGOT) 32 U/L (15-37) Alanine Aminotransferase (ALT/SGPT) 21 U/L (14-59) Alkaline Phosphatase 92 U/L (46-116) Troponin I Quantitative < 0.017 ng/mL (0.000-0.055) < 0.017 ng/mL (0.000-0.055) < 0.017 ng/mL (0.000-0.055) BZ-Vtj-W-Type Natriuretic Peptide 246 pg/mL (0-124) Total Protein 7.4 g/dL (6.4-8.2) Albumin 3.4 g/dL (3.4-5.0) Albumin/Globulin Ratio 0.9 (1.0-1.7) Urine Collection Type Unknown Urine Color Yellow Urine Clarity Clear Urine pH 7.0 Urine Specific [place] 1.010 Urine Protein Negative mg/dL (NEG-TRACE) Urine Glucose (UA) Negative mg/dL (NEG) Urine Ketones (Stick) Negative mg/dL (NEG) Urine Blood Negative (NEG) Urine Nitrite Negative (NEG) Urine Bilirubin Negative (NEG) Urine Urobilinogen Dipstick 0.2 mg/dL (0.2 mg/dL) Urine Leukocyte Esterase Negative (NEG) Urine RBC 0 /HPF (0-2) Urine WBC 0 /HPF (0-4) Urine Squamous Epithelial Cells Few /LPF Urine Bacteria 0 /HPF (0-FEW) Iron Level 37 ug/dL (50-170) Total Iron Binding Capacity 472 ug/dL (250-450) Iron Saturation 8 % (15-34) Ferritin 12 ng/mL (8-252) Triglycerides Level 47 mg/dL (0-150) Cholesterol Level 193 mg/dL (0-200) LDL Cholesterol, Calculated 55 mg/dL (0-100) VLDL Cholesterol, Calculated 9 mg/dL (0-40) Non-HDL Cholesterol Calculated 64 mg/dL (0-129) HDL Cholesterol 129 mg/dL (40-60) Cholesterol/HDL Ratio 1.5 Vitamin B12 Level 437 pg/mL (247-911) Serum Folate 15.29 ng/ml (3.2-20.0) Thyroid Stimulating Hormone (TSH) 1.804 uIU/mL (0.358-3.74) Laboratory Tests Test 10/05/16 11:07 10/05/16 12:45 10/05/16 20:15 10/06/16 04:50 White Blood Count 5.5 x10^3/uL (4.0-11.0) 5.1 x10^3/uL (4.0-11.0) Red Blood Count 4.09 x10^6/uL (3.50-5.40) 3.65 x10^6/uL (3.50-5.40) Hemoglobin 10.5 g/dL (12.0-15.5) 9.5 g/dL (12.0-15.5) Hematocrit 33.6 % (36.0-47.0) 29.8 % (36.0-47.0) Mean Corpuscular Volume 82 fL (79-100) 82 fL (79-100) Mean Corpuscular Hemoglobin 26 pg (25-35) 26 pg (25-35) Mean Corpuscular Hemoglobin Concent 31 g/dL (31-37) 32 g/dL (31-37) Red Cell Distribution Width 19.2 % (11.5-14.5) 19.1 % (11.5-14.5) Platelet Count 318 x10^3/uL (140-400) 294 x10^3/uL (140-400) Neutrophils (%) (Auto) 67 % (31-73) 47 % (31-73) Lymphocytes (%) (Auto) 26 % (24-48) 41 % (24-48) Monocytes (%) (Auto) 6 % (0-9) 10 % (0-9) Eosinophils (%) (Auto) 1 % (0-3) 1 % (0-3) Basophils (%) (Auto) 1 % (0-3) 1 % (0-3) Neutrophils # (Auto) 3.7 x10^3uL (1.8-7.7) 2.4 x10^3uL (1.8-7.7) Lymphocytes # (Auto) 1.4 x10^3/uL (1.0-4.8) 2.1 x10^3/uL (1.0-4.8) Monocytes # (Auto) 0.3 x10^3/uL (0.0-1.1) 0.5 x10^3/uL (0.0-1.1) Eosinophils # (Auto) 0.0 x10^3/uL (0.0-0.7) 0.1 x10^3/uL (0.0-0.7) Basophils # (Auto) 0.1 x10^3/uL (0.0-0.2) 0.0 x10^3/uL (0.0-0.2) Sodium Level 140 mmol/L (136-145) 142 mmol/L (136-145) Potassium Level 4.5 mmol/L (3.5-5.1) 3.9 mmol/L (3.5-5.1) Chloride Level 102 mmol/L (98-107) 105 mmol/L (98-107) Carbon Dioxide Level 26 mmol/L (21-32) 28 mmol/L (21-32) Anion Gap 12 (6-14) 9 (6-14) Blood Urea Nitrogen 9 mg/dL (7-20) 10 mg/dL (7-20) Creatinine 0.8 mg/dL (0.6-1.0) 0.7 mg/dL (0.6-1.0) Estimated GFR (Cockcroft-Gault) 87.1 101.6 BUN/Creatinine Ratio 11 (6-20) Glucose Level 112 mg/dL (70-99) 99 mg/dL (70-99) Calcium Level 9.2 mg/dL (8.5-10.1) 8.9 mg/dL (8.5-10.1) Total Bilirubin 0.4 mg/dL (0.2-1.0) Aspartate Amino Transf (AST/SGOT) 32 U/L (15-37) Alanine Aminotransferase (ALT/SGPT) 21 U/L (14-59) Alkaline Phosphatase 92 U/L (46-116) Troponin I Quantitative < 0.017 ng/mL (0.000-0.055) < 0.017 ng/mL (0.000-0.055) < 0.017 ng/mL (0.000-0.055) FK-Mxs-P-Type Natriuretic Peptide 246 pg/mL (0-124) Total Protein 7.4 g/dL (6.4-8.2) Albumin 3.4 g/dL (3.4-5.0) Albumin/Globulin Ratio 0.9 (1.0-1.7) Urine Collection Type Unknown Urine Color Yellow Urine Clarity Clear Urine pH 7.0 Urine Specific [place] 1.010 Urine Protein Negative mg/dL (NEG-TRACE) Urine Glucose (UA) Negative mg/dL (NEG) Urine Ketones (Stick) Negative mg/dL (NEG) Urine Blood Negative (NEG) Urine Nitrite Negative (NEG) Urine Bilirubin Negative (NEG) Urine Urobilinogen Dipstick 0.2 mg/dL (0.2 mg/dL) Urine Leukocyte Esterase Negative (NEG) Urine RBC 0 /HPF (0-2) Urine WBC 0 /HPF (0-4) Urine Squamous Epithelial Cells Few /LPF Urine Bacteria 0 /HPF (0-FEW) Iron Level 37 ug/dL (50-170) Total Iron Binding Capacity 472 ug/dL (250-450) Iron Saturation 8 % (15-34) Ferritin 12 ng/mL (8-252) Triglycerides Level 47 mg/dL (0-150) Cholesterol Level 193 mg/dL (0-200) LDL Cholesterol, Calculated 55 mg/dL (0-100) VLDL Cholesterol, Calculated 9 mg/dL (0-40) Non-HDL Cholesterol Calculated 64 mg/dL (0-129) HDL Cholesterol 129 mg/dL (40-60) Cholesterol/HDL Ratio 1.5 Vitamin B12 Level 437 pg/mL (247-911) Serum Folate 15.29 ng/ml (3.2-20.0) Thyroid Stimulating Hormone (TSH) 1.804 uIU/mL (0.358-3.74) Medications Current Medications Fentanyl Citrate (Fentanyl 2ml Vial) 25 mcg PRN Q15MIN PRN IV PAIN GREATER THAN 3/10 Last administered on 10/05/16 12:50; Start 10/05/16 at 11:30; Stop at 11:29 Albuterol/ Ipratropium (Duoneb) 3 ml 1X ONCE NEB Last administered on 14:10; Start 10/05/16 at 14:00; Stop 10/05/16 at 14:03; Status DC Ondansetron HCl (Zofran) 4 mg PRN Q8HRS PRN IV NAUSEA/VOMITING; Start 10/05/16 at 15:15; Stop 10/06/16 at 15:14 Fentanyl Citrate (Fentanyl 2ml Vial) 50 mcg PRN Q2HR PRN IV PAIN Last administered on 10/05/16 15:19; Start 10/05/16 at 15:15; Stop 10/06/16 at 15:14 Acetaminophen (Tylenol) 650 mg PRN Q4HRS PRN PO FEVER; Start 10/05/16 at 15:15 ; Stop 10/06/16 at 15:14 Nitroglycerin (Nitrostat) 0.4 mg PRN Q5MIN PRN SL CHEST PAIN; Start 10/05/16 at 15:15; Stop 10/06/16 at 15:14 Albuterol/ Ipratropium (Duoneb) 3 ml RTQID NEB ; Start 10/05/16 at 16:00; Stop 10/05/16 at 16:00; Status DC Cyclobenzaprine HCl (Flexeril) 10 mg PRN TID PRN PO MUSCLE SPASTICITY; Start at 15:30 Docusate Sodium (Colace) 100 mg BID PO ; Start 10/05/16 at 21:00 Acetaminophen/ Hydrocodone Bitart (Lortab 10/325) 1 tab PRN QID PRN PO PAIN Last administered on 10/06/16 03:33; Start 10/05/16 at 15:30 Gabapentin (Neurontin) 300 mg TID PO Last administered on 10/06/16 07:51; Start 10/05/16 at 21:00 Pantoprazole Sodium (Protonix) 40 mg DAILYAC PO Last administered on 10/06/16 07:51; Start 10/06/16 at 07:30 Acetaminophen/ Hydrocodone Bitart (Lortab 10/325) 1 tab PRN Q6HRS PRN PO PAIN; Start 10/05/16 at 15:30 Morphine Sulfate 2 mg PRN Q4HRS PRN IV PAIN Last administered on 10/06/16 09: 17; Start 10/05/16 at 15:30 Albuterol/ Ipratropium (Duoneb) 3 ml RTQID NEB Last administered on 10/06/16 07:38; Start 10/05/16 at 16:00 Albuterol Sulfate (Ventolin Neb Soln) 2.5 mg PRN Q2HR PRN NEB SHORTNESS OF BREATH; Start 10/05/16 at 15:30 Enoxaparin Sodium (Lovenox 40mg Syringe) 40 mg DAILY SQ ; Start 10/06/16 at 09: 00 Active Scripts Active Oxycodone-Acetaminophen 5-325 (Oxycodone Hcl/Acetaminophen) 1 Each Tablet 2 Tab PO PRN Q4HRS PRN Cyclobenzaprine Hcl 10 Mg Tablet 10 Mg PO PRN TID PRN Colace (Docusate Sodium) 100 Mg Capsule 100 Mg PO BID Reported Hydrocodone-Apap 10-325 (Hydrocodone Bit/Acetaminophen) 1 Each Tablet 1-2 Tab PO QID PRN Last dose given 3:00pm; may take every 6 hours as needed for pain. Next dose: anytime after 9:00pm. Cyclobenzaprine Hcl 10 Mg Tablet 1 Tab PO TID PRN LAST DOSE GIVEN: Today DATE: 03/26/16 TIME: 2:00 pm NEXT DOSE DUE: Ton DATE: 03/26/16 TIME: 9:00pm Omeprazole 20 Mg Capsule.dr 1 Cap PO DAILY Next dose: Tomorrow am Gabapentin 300 Mg Capsule 300 Mg PO TID LAST DOSE GIVEN: Today DATE: 03/26/16 TIME: 2:00pm NEXT DOSE DUE: Ton DATE: 03/26/16 TIME: 9:00pm Vitals/I & O Vital Sign - Last 24 Hours 10/05/16 10/05/16 10/05/16 10/05/16 11:10 11:30 12:00 12:30 Temp 98.2 98.2 Pulse 68 64 64 62 Resp 20 17 21 21 B/P (MAP) 168/73 (104) 142/70 (94) 158/77 (104) 152/73 (99) Pulse Ox 100 99 100 99 O2 Delivery Room Air Room Air 10/05/16 10/05/16 10/05/16 10/05/16 12:50 13:00 13:30 14:00 Pulse 62 64 60 Resp 18 24 17 21 B/P (MAP) 161/81 (107) 153/76 (101) 156/81 (106) Pulse Ox 100 100 99 100 O2 Delivery Room Air 10/05/16 10/05/16 10/05/16 10/05/16 14:10 14:30 15:00 15:19 Pulse 78 72 Resp 24 22 20 B/P (MAP) 164/76 (105) 147/74 (98) Pulse Ox 100 98 98 99 O2 Delivery Room Air Room Air 10/05/16 10/05/16 10/05/16 10/05/16 15:30 15:52 16:00 17:11 Pulse 64 72 Resp 22 21 20 B/P (MAP) 163/82 (109) 152/72 (98) Pulse Ox 99 100 93 O2 Delivery Room Air Room Air Room Air 10/05/16 10/05/16 10/05/16 10/05/16 17:41 19:00 19:03 20:00 Temp 98.1 98.5 98.1 98.5 Pulse 70 70 Resp 16 18 20 B/P (MAP) 140/75 (96) 145/71 (95) Pulse Ox 100 97 93 O2 Delivery Room Air Room Air Room Air Room Air 10/05/16 10/05/16 10/06/16 10/06/16 21:00 22:38 00:36 03:33 Temp 98.1 98.1 Pulse 68 Resp 17 B/P (MAP) 143/79 (100) Pulse Ox 99 99 99 99 O2 Delivery Room Air Room Air Room Air Room Air 10/06/16 10/06/16 10/06/16 10/06/16 05:07 07:00 07:39 08:00 Temp 98.2 98.2 Pulse 69 Resp 16 B/P (MAP) 135/82 (99) Pulse Ox 99 96 96 O2 Delivery Room Air Room Air Room Air Room Air 10/06/16 10/06/16 09:17 09:32 Resp 20 20 Pulse Ox 96 96 O2 Delivery Room Air Room Air Intake and Output 10/05/16 10/05/16 10/06/16 15:00 23:00 07:00 Intake Total 500 ml Balance 500 ml KIANA ELLISON MD October 06, 2016 09:46
[2016-10-06 11:11] VITALS: BP 136/82
[2016-10-06] MEDS: ASPIRIN ENTERIC COATED 81 MG TABLET.DR. PO SCH (12:04)
[2016-10-06] MEDS: FERROUS SULFATE 325 MG TABLET. PO SCH (12:04)
--- NOTE | 2016-10-06 12:31 | PDOC ---
PROGRESS NOTES Chief Complaint Chief Complaint 1. sob, likely 2/2 anxiety 2. mild bronchitis 3. worsening chronic lower back pain with h/o back sx 4. fatigure 5. htn 6. tobaccoism 7. normacytic anemia, iron deficiency 8. possible iv pain meds seeker 9. chest pain, 2/2 muscular issues plan: 1. dr. Turner consulted 2. pain control ptot 3. check tsh, vitb12, fa, vitd, cdiff ferritin, iron panel add iron po 4. duoneb, albuterol prn dvt ppx stable to dc today, however, pt refused to go home today, agree for tmr History of Present Illness History of Present Illness chest pain today, with tenderness still c/o sob, looks very calm, no need o2 still require iv pain meds Vitals Vitals Vital Signs Date Time Temp Pulse Resp B/P (MAP) Pulse Ox O2 Delivery O2 Flow Rate FiO2 10/06/16 11:12 98 Room Air 10/06/16 11:11 98.1 71 16 136/82 (100) 98.1 Physical Exam General: Alert, Oriented X3, Cooperative, No acute distress Heart: Regular rate (SR), Normal S1, Normal S2, Other (2/6 systolic murmur to LLS border) Abdomen: Soft, No tenderness Extremities: No cyanosis, No edema Skin: No breakdown, No significant lesion Labs LABS Laboratory Tests Test 10/05/16 12:45 10/05/16 20:15 10/06/16 04:50 Urine Collection Type Unknown Urine Color Yellow Urine Clarity Clear Urine pH 7.0 Urine Specific [place] 1.010 Urine Protein Negative mg/dL (NEG-TRACE) Urine Glucose (UA) Negative mg/dL (NEG) Urine Ketones (Stick) Negative mg/dL (NEG) Urine Blood Negative (NEG) Urine Nitrite Negative (NEG) Urine Bilirubin Negative (NEG) Urine Urobilinogen Dipstick 0.2 mg/dL (0.2 mg/dL) Urine Leukocyte Esterase Negative (NEG) Urine RBC 0 /HPF (0-2) Urine WBC 0 /HPF (0-4) Urine Squamous Epithelial Cells Few /LPF Urine Bacteria 0 /HPF (0-FEW) Troponin I Quantitative < 0.017 ng/mL (0.000-0.055) < 0.017 ng/mL (0.000-0.055) White Blood Count 5.1 x10^3/uL (4.0-11.0) Red Blood Count 3.65 x10^6/uL (3.50-5.40) Hemoglobin 9.5 g/dL (12.0-15.5) Hematocrit 29.8 % (36.0-47.0) Mean Corpuscular Volume 82 fL (79-100) Mean Corpuscular Hemoglobin 26 pg (25-35) Mean Corpuscular Hemoglobin Concent 32 g/dL (31-37) Red Cell Distribution Width 19.1 % (11.5-14.5) Platelet Count 294 x10^3/uL (140-400) Neutrophils (%) (Auto) 47 % (31-73) Lymphocytes (%) (Auto) 41 % (24-48) Monocytes (%) (Auto) 10 % (0-9) Eosinophils (%) (Auto) 1 % (0-3) Basophils (%) (Auto) 1 % (0-3) Neutrophils # (Auto) 2.4 x10^3uL (1.8-7.7) Lymphocytes # (Auto) 2.1 x10^3/uL (1.0-4.8) Monocytes # (Auto) 0.5 x10^3/uL (0.0-1.1) Eosinophils # (Auto) 0.1 x10^3/uL (0.0-0.7) Basophils # (Auto) 0.0 x10^3/uL (0.0-0.2) Sodium Level 142 mmol/L (136-145) Potassium Level 3.9 mmol/L (3.5-5.1) Chloride Level 105 mmol/L (98-107) Carbon Dioxide Level 28 mmol/L (21-32) Anion Gap 9 (6-14) Blood Urea Nitrogen 10 mg/dL (7-20) Creatinine 0.7 mg/dL (0.6-1.0) Estimated GFR (Cockcroft-Gault) 101.6 Glucose Level 99 mg/dL (70-99) Calcium Level 8.9 mg/dL (8.5-10.1) Iron Level 37 ug/dL (50-170) Total Iron Binding Capacity 472 ug/dL (250-450) Iron Saturation 8 % (15-34) Ferritin 12 ng/mL (8-252) Triglycerides Level 47 mg/dL (0-150) Cholesterol Level 193 mg/dL (0-200) LDL Cholesterol, Calculated 55 mg/dL (0-100) VLDL Cholesterol, Calculated 9 mg/dL (0-40) Non-HDL Cholesterol Calculated 64 mg/dL (0-129) HDL Cholesterol 129 mg/dL (40-60) Cholesterol/HDL Ratio 1.5 Vitamin B12 Level 437 pg/mL (247-911) Serum Folate 15.29 ng/ml (3.2-20.0) Thyroid Stimulating Hormone (TSH) 1.804 uIU/mL (0.358-3.74) Review of Systems Review of Systems no fever, chills, sob or chest pain Assessment and Plan Assessmemt and Plan Problems Medical Problems: (1) SOB (shortness of breath) Status: Acute Problems: Comment Review of Relevant I have reviewed the following items tamara (where applicable) has been applied. Labs Laboratory Tests Test 10/05/16 11:07 10/05/16 12:45 10/05/16 20:15 10/06/16 04:50 White Blood Count 5.5 x10^3/uL (4.0-11.0) 5.1 x10^3/uL (4.0-11.0) Red Blood Count 4.09 x10^6/uL (3.50-5.40) 3.65 x10^6/uL (3.50-5.40) Hemoglobin 10.5 g/dL (12.0-15.5) 9.5 g/dL (12.0-15.5) Hematocrit 33.6 % (36.0-47.0) 29.8 % (36.0-47.0) Mean Corpuscular Volume 82 fL (79-100) 82 fL (79-100) Mean Corpuscular Hemoglobin 26 pg (25-35) 26 pg (25-35) Mean Corpuscular Hemoglobin Concent 31 g/dL (31-37) 32 g/dL (31-37) Red Cell Distribution Width 19.2 % (11.5-14.5) 19.1 % (11.5-14.5) Platelet Count 318 x10^3/uL (140-400) 294 x10^3/uL (140-400) Neutrophils (%) (Auto) 67 % (31-73) 47 % (31-73) Lymphocytes (%) (Auto) 26 % (24-48) 41 % (24-48) Monocytes (%) (Auto) 6 % (0-9) 10 % (0-9) Eosinophils (%) (Auto) 1 % (0-3) 1 % (0-3) Basophils (%) (Auto) 1 % (0-3) 1 % (0-3) Neutrophils # (Auto) 3.7 x10^3uL (1.8-7.7) 2.4 x10^3uL (1.8-7.7) Lymphocytes # (Auto) 1.4 x10^3/uL (1.0-4.8) 2.1 x10^3/uL (1.0-4.8) Monocytes # (Auto) 0.3 x10^3/uL (0.0-1.1) 0.5 x10^3/uL (0.0-1.1) Eosinophils # (Auto) 0.0 x10^3/uL (0.0-0.7) 0.1 x10^3/uL (0.0-0.7) Basophils # (Auto) 0.1 x10^3/uL (0.0-0.2) 0.0 x10^3/uL (0.0-0.2) Sodium Level 140 mmol/L (136-145) 142 mmol/L (136-145) Potassium Level 4.5 mmol/L (3.5-5.1) 3.9 mmol/L (3.5-5.1) Chloride Level 102 mmol/L (98-107) 105 mmol/L (98-107) Carbon Dioxide Level 26 mmol/L (21-32) 28 mmol/L (21-32) Anion Gap 12 (6-14) 9 (6-14) Blood Urea Nitrogen 9 mg/dL (7-20) 10 mg/dL (7-20) Creatinine 0.8 mg/dL (0.6-1.0) 0.7 mg/dL (0.6-1.0) Estimated GFR (Cockcroft-Gault) 87.1 101.6 BUN/Creatinine Ratio 11 (6-20) Glucose Level 112 mg/dL (70-99) 99 mg/dL (70-99) Calcium Level 9.2 mg/dL (8.5-10.1) 8.9 mg/dL (8.5-10.1) Total Bilirubin 0.4 mg/dL (0.2-1.0) Aspartate Amino Transf (AST/SGOT) 32 U/L (15-37) Alanine Aminotransferase (ALT/SGPT) 21 U/L (14-59) Alkaline Phosphatase 92 U/L (46-116) Troponin I Quantitative < 0.017 ng/mL (0.000-0.055) < 0.017 ng/mL (0.000-0.055) < 0.017 ng/mL (0.000-0.055) JR-Vxf-[id number]-Type Natriuretic Peptide 246 pg/mL (0-124) Total Protein 7.4 g/dL (6.4-8.2) Albumin 3.4 g/dL (3.4-5.0) Albumin/Globulin Ratio 0.9 (1.0-1.7) Urine Collection Type Unknown Urine Color Yellow Urine Clarity Clear Urine pH 7.0 Urine Specific [place] 1.010 Urine Protein Negative mg/dL (NEG-TRACE) Urine Glucose (UA) Negative mg/dL (NEG) Urine Ketones (Stick) Negative mg/dL (NEG) Urine Blood Negative (NEG) Urine Nitrite Negative (NEG) Urine Bilirubin Negative (NEG) Urine Urobilinogen Dipstick 0.2 mg/dL (0.2 mg/dL) Urine Leukocyte Esterase Negative (NEG) Urine RBC 0 /HPF (0-2) Urine WBC 0 /HPF (0-4) Urine Squamous Epithelial Cells Few /LPF Urine Bacteria 0 /HPF (0-FEW) Iron Level 37 ug/dL (50-170) Total Iron Binding Capacity 472 ug/dL (250-450) Iron Saturation 8 % (15-34) Ferritin 12 ng/mL (8-252) Triglycerides Level 47 mg/dL (0-150) Cholesterol Level 193 mg/dL (0-200) LDL Cholesterol, Calculated 55 mg/dL (0-100) VLDL Cholesterol, Calculated 9 mg/dL (0-40) Non-HDL Cholesterol Calculated 64 mg/dL (0-129) HDL Cholesterol 129 mg/dL (40-60) Cholesterol/HDL Ratio 1.5 Vitamin B12 Level 437 pg/mL (247-911) Serum Folate 15.29 ng/ml (3.2-20.0) Thyroid Stimulating Hormone (TSH) 1.804 uIU/mL (0.358-3.74) Laboratory Tests Test 10/05/16 12:45 10/05/16 20:15 10/06/16 04:50 Urine Collection Type Unknown Urine Color Yellow Urine Clarity Clear Urine pH 7.0 Urine Specific [place] 1.010 Urine Protein Negative mg/dL (NEG-TRACE) Urine Glucose (UA) Negative mg/dL (NEG) Urine Ketones (Stick) Negative mg/dL (NEG) Urine Blood Negative (NEG) Urine Nitrite Negative (NEG) Urine Bilirubin Negative (NEG) Urine Urobilinogen Dipstick 0.2 mg/dL (0.2 mg/dL) Urine Leukocyte Esterase Negative (NEG) Urine RBC 0 /HPF (0-2) Urine WBC 0 /HPF (0-4) Urine Squamous Epithelial Cells Few /LPF Urine Bacteria 0 /HPF (0-FEW) Troponin I Quantitative < 0.017 ng/mL (0.000-0.055) < 0.017 ng/mL (0.000-0.055) White Blood Count 5.1 x10^3/uL (4.0-11.0) Red Blood Count 3.65 x10^6/uL (3.50-5.40) Hemoglobin 9.5 g/dL (12.0-15.5) Hematocrit 29.8 % (36.0-47.0) Mean Corpuscular Volume 82 fL (79-100) Mean Corpuscular Hemoglobin 26 pg (25-35) Mean Corpuscular Hemoglobin Concent 32 g/dL (31-37) Red Cell Distribution Width 19.1 % (11.5-14.5) Platelet Count 294 x10^3/uL (140-400) Neutrophils (%) (Auto) 47 % (31-73) Lymphocytes (%) (Auto) 41 % (24-48) Monocytes (%) (Auto) 10 % (0-9) Eosinophils (%) (Auto) 1 % (0-3) Basophils (%) (Auto) 1 % (0-3) Neutrophils # (Auto) 2.4 x10^3uL (1.8-7.7) Lymphocytes # (Auto) 2.1 x10^3/uL (1.0-4.8) Monocytes # (Auto) 0.5 x10^3/uL (0.0-1.1) Eosinophils # (Auto) 0.1 x10^3/uL (0.0-0.7) Basophils # (Auto) 0.0 x10^3/uL (0.0-0.2) Sodium Level 142 mmol/L (136-145) Potassium Level 3.9 mmol/L (3.5-5.1) Chloride Level 105 mmol/L (98-107) Carbon Dioxide Level 28 mmol/L (21-32) Anion Gap 9 (6-14) Blood Urea Nitrogen 10 mg/dL (7-20) Creatinine 0.7 mg/dL (0.6-1.0) Estimated GFR (Cockcroft-Gault) 101.6 Glucose Level 99 mg/dL (70-99) Calcium Level 8.9 mg/dL (8.5-10.1) Iron Level 37 ug/dL (50-170) Total Iron Binding Capacity 472 ug/dL (250-450) Iron Saturation 8 % (15-34) Ferritin 12 ng/mL (8-252) Triglycerides Level 47 mg/dL (0-150) Cholesterol Level 193 mg/dL (0-200) LDL Cholesterol, Calculated 55 mg/dL (0-100) VLDL Cholesterol, Calculated 9 mg/dL (0-40) Non-HDL Cholesterol Calculated 64 mg/dL (0-129) HDL Cholesterol 129 mg/dL (40-60) Cholesterol/HDL Ratio 1.5 Vitamin B12 Level 437 pg/mL (247-911) Serum Folate 15.29 ng/ml (3.2-20.0) Thyroid Stimulating Hormone (TSH) 1.804 uIU/mL (0.358-3.74) Medications Current Medications Fentanyl Citrate (Fentanyl 2ml Vial) 25 mcg PRN Q15MIN PRN IV PAIN GREATER THAN 3/10 Last administered on 10/05/16 12:50; Start 10/05/16 at 11:30; Stop at 11:29; Status DC Albuterol/ Ipratropium (Duoneb) 3 ml 1X ONCE NEB Last administered on 14:10; Start 10/05/16 at 14:00; Stop 10/05/16 at 14:03; Status DC Ondansetron HCl (Zofran) 4 mg PRN Q8HRS PRN IV NAUSEA/VOMITING; Start 10/05/16 at 15:15; Stop 10/06/16 at 15:14 Fentanyl Citrate (Fentanyl 2ml Vial) 50 mcg PRN Q2HR PRN IV PAIN Last administered on 10/05/16 15:19; Start 10/05/16 at 15:15; Stop 10/06/16 at 15:14 Acetaminophen (Tylenol) 650 mg PRN Q4HRS PRN PO FEVER; Start 10/05/16 at 15:15 ; Stop 10/06/16 at 15:14 Nitroglycerin (Nitrostat) 0.4 mg PRN Q5MIN PRN SL CHEST PAIN; Start 10/05/16 at 15:15; Stop 10/06/16 at 15:14 Albuterol/ Ipratropium (Duoneb) 3 ml RTQID NEB ; Start 10/05/16 at 16:00; Stop 10/05/16 at 16:00; Status DC Cyclobenzaprine HCl (Flexeril) 10 mg PRN TID PRN PO MUSCLE SPASTICITY; Start at 15:30 Docusate Sodium (Colace) 100 mg BID PO ; Start 10/05/16 at 21:00 Acetaminophen/ Hydrocodone Bitart (Lortab 10/325) 1 tab PRN QID PRN PO PAIN Last administered on 10/06/16 03:33; Start 10/05/16 at 15:30 Gabapentin (Neurontin) 300 mg TID PO Last administered on 10/06/16 12:04; Start 10/05/16 at 21:00 Pantoprazole Sodium (Protonix) 40 mg DAILYAC PO Last administered on 10/06/16 07:51; Start 10/06/16 at 07:30 Acetaminophen/ Hydrocodone Bitart (Lortab 10/325) 1 tab PRN Q6HRS PRN PO PAIN; Start 10/05/16 at 15:30 Morphine Sulfate 2 mg PRN Q4HRS PRN IV PAIN Last administered on 10/06/16 09: 17; Start 10/05/16 at 15:30 Albuterol/ Ipratropium (Duoneb) 3 ml RTQID NEB Last administered on 10/06/16 11:11; Start 10/05/16 at 16:00 Albuterol Sulfate (Ventolin Neb Soln) 2.5 mg PRN Q2HR PRN NEB SHORTNESS OF BREATH; Start 10/05/16 at 15:30 Enoxaparin Sodium (Lovenox 40mg Syringe) 40 mg DAILY SQ ; Start 10/06/16 at 09: 00 Ferrous Sulfate (Feosol) 325 mg DAILYWBKFT PO Last administered on 10/06/16 12 :04; Start 10/06/16 at 11:30 Aspirin (Ecotrin) 81 mg DAILYWBKFT PO Last administered on 10/06/16 12:04; Start 10/06/16 at 11:00 Active Scripts Active Oxycodone-Acetaminophen 5-325 (Oxycodone Hcl/Acetaminophen) 1 Each Tablet 2 Tab PO PRN Q4HRS PRN Cyclobenzaprine Hcl 10 Mg Tablet 10 Mg PO PRN TID PRN Colace (Docusate Sodium) 100 Mg Capsule 100 Mg PO BID Reported Hydrocodone-Apap 10-325 (Hydrocodone Bit/Acetaminophen) 1 Each Tablet 1-2 Tab PO QID PRN Last dose given 3:00pm; may take every 6 hours as needed for pain. Next dose: anytime after 9:00pm. Cyclobenzaprine Hcl 10 Mg Tablet 1 Tab PO TID PRN LAST DOSE GIVEN: Today DATE: 03/26/16 TIME: 2:00 pm NEXT DOSE DUE: Tonight DATE: 03/26/16 TIME: 9:00pm Omeprazole 20 Mg Capsule. 1 Cap PO DAILY Next dose: Tomorrow am Gabapentin 300 Mg Capsule 300 Mg PO TID LAST DOSE GIVEN: Today DATE: 03/26/16 TIME: 2:00pm NEXT DOSE DUE: Tonight DATE: 03/26/16 TIME: 9:00pm Vitals/I & O Vital Sign - Last 24 Hours 10/05/16 10/05/16 10/05/16 10/05/16 12:30 12:50 13:00 13:30 Pulse 62 62 64 Resp 17 B/P (MAP) 152/73 (99) 161/81 (107) 153/76 (101) Pulse Ox 99 100 100 99 O2 Delivery Room Air 10/05/16 10/05/16 10/05/16 10/05/16 14:00 14:10 14:30 15:00 Pulse 60 78 72 Resp 21 24 22 B/P (MAP) 156/81 (106) 164/76 (105) 147/74 (98) Pulse Ox 100 100 98 98 O2 Delivery Room Air 10/05/16 10/05/16 10/05/16 10/05/16 15:19 15:30 15:52 16:00 Pulse 64 72 Resp 20 22 21 B/P (MAP) 163/82 (109) 152/72 (98) Pulse Ox 99 99 100 O2 Delivery Room Air Room Air Room Air 10/05/16 10/05/16 10/05/16 10/05/16 17:11 17:41 19:00 19:03 Temp 98.1 98.5 98.1 98.5 Pulse 70 70 Resp 20 16 18 20 B/P (MAP) 140/75 (96) 145/71 (95) Pulse Ox 93 100 97 93 O2 Delivery Room Air Room Air Room Air Room Air 10/05/16 10/05/16 10/05/16 10/06/16 20:00 21:00 22:38 00:36 Temp 98.1 98.1 Pulse 68 Resp 17 B/P (MAP) 143/79 (100) Pulse Ox 99 99 99 O2 Delivery Room Air Room Air Room Air Room Air 10/06/16 10/06/16 10/06/16 10/06/16 03:33 05:07 07:00 07:39 Temp 98.2 98.2 Pulse 69 Resp 16 B/P (MAP) 135/82 (99) Pulse Ox 99 99 96 96 O2 Delivery Room Air Room Air Room Air Room Air 10/06/16 10/06/16 10/06/16 10/06/16 08:00 09:17 09:32 11:11 Temp 98.1 98.1 Pulse 71 Resp 20 20 16 B/P (MAP) 136/82 (100) Pulse Ox 96 96 97 O2 Delivery Room Air Room Air Room Air Room Air 10/06/16 11:12 Pulse Ox 98 O2 Delivery Room Air Intake and Output 10/05/16 10/05/16 10/06/16 14:59 22:59 06:59 Intake Total 500 ml Balance 500 ml NORMA VASQUEZ MD October 06, 2016 12:31
[2016-10-06 14:41] VITALS: BP 131/82
[2016-10-06 19:00] VITALS: BP 141/76
[2016-10-06 23:07] VITALS: BP 156/87
[2016-10-07] MEDS: MORPHINE SULFATE 2 MG/ML DISP.SYRIN. IV PRN ×2 (03:43→09:26)
[2016-10-07 07:00] VITALS: BP 173/87
[2016-10-07] MEDS: IPRATRPIUM/ALBUTEROL 0.5/2.5MG 3 ML NEBU. NEB SCH ×2 (07:16→11:19)
--- NOTE | 2016-10-07 08:57 | PDOC ---
PROGRESS NOTES Subjective Subjective She still admits some chest tightness and she denies any significant low back pain. Objective Objective Vital Signs Date Time Temp Pulse Resp B/P (MAP) Pulse Ox O2 Delivery O2 Flow Rate FiO2 10/07/16 07:17 98 Room Air 10/07/16 07:00 97.9 64 18 173/87 (115) 97.9 10/06/16 14:41 2.0 Intake and Output 10/07/16 07:00 Intake Total 600 ml Balance 600 ml Intake Oral 600 ml # Voids 8 Physical Exam Physical Exam She is supine in bed and does not seem to be in any acute distress.She is getting up and walking with physical therapy and she gets tired easily.Very low physical endurance. Assessment Assessment Problems Medical Problems: (1) SOB (shortness of breath) Status: Acute Plan Plan of Care To ask for a screen for transfer to SNF when medically stable. Comment Review of Relevant I have reviewed the following items tamara (where applicable) has been applied. Labs Laboratory Tests Test 10/05/16 11:07 10/05/16 12:45 10/05/16 20:15 10/06/16 04:50 White Blood Count 5.5 x10^3/uL (4.0-11.0) 5.1 x10^3/uL (4.0-11.0) Red Blood Count 4.09 x10^6/uL (3.50-5.40) 3.65 x10^6/uL (3.50-5.40) Hemoglobin 10.5 g/dL (12.0-15.5) 9.5 g/dL (12.0-15.5) Hematocrit 33.6 % (36.0-47.0) 29.8 % (36.0-47.0) Mean Corpuscular Volume 82 fL (79-100) 82 fL (79-100) Mean Corpuscular Hemoglobin 26 pg (25-35) 26 pg (25-35) Mean Corpuscular Hemoglobin Concent 31 g/dL (31-37) 32 g/dL (31-37) Red Cell Distribution Width 19.2 % (11.5-14.5) 19.1 % (11.5-14.5) Platelet Count 318 x10^3/uL (140-400) 294 x10^3/uL (140-400) Neutrophils (%) (Auto) 67 % (31-73) 47 % (31-73) Lymphocytes (%) (Auto) 26 % (24-48) 41 % (24-48) Monocytes (%) (Auto) 6 % (0-9) 10 % (0-9) Eosinophils (%) (Auto) 1 % (0-3) 1 % (0-3) Basophils (%) (Auto) 1 % (0-3) 1 % (0-3) Neutrophils # (Auto) 3.7 x10^3uL (1.8-7.7) 2.4 x10^3uL (1.8-7.7) Lymphocytes # (Auto) 1.4 x10^3/uL (1.0-4.8) 2.1 x10^3/uL (1.0-4.8) Monocytes # (Auto) 0.3 x10^3/uL (0.0-1.1) 0.5 x10^3/uL (0.0-1.1) Eosinophils # (Auto) 0.0 x10^3/uL (0.0-0.7) 0.1 x10^3/uL (0.0-0.7) Basophils # (Auto) 0.1 x10^3/uL (0.0-0.2) 0.0 x10^3/uL (0.0-0.2) Sodium Level 140 mmol/L (136-145) 142 mmol/L (136-145) Potassium Level 4.5 mmol/L (3.5-5.1) 3.9 mmol/L (3.5-5.1) Chloride Level 102 mmol/L (98-107) 105 mmol/L (98-107) Carbon Dioxide Level 26 mmol/L (21-32) 28 mmol/L (21-32) Anion Gap 12 (6-14) 9 (6-14) Blood Urea Nitrogen 9 mg/dL (7-20) 10 mg/dL (7-20) Creatinine 0.8 mg/dL (0.6-1.0) 0.7 mg/dL (0.6-1.0) Estimated GFR (Cockcroft-Gault) 87.1 101.6 BUN/Creatinine Ratio 11 (6-20) Glucose Level 112 mg/dL (70-99) 99 mg/dL (70-99) Calcium Level 9.2 mg/dL (8.5-10.1) 8.9 mg/dL (8.5-10.1) Total Bilirubin 0.4 mg/dL (0.2-1.0) Aspartate Amino Transf (AST/SGOT) 32 U/L (15-37) Alanine Aminotransferase (ALT/SGPT) 21 U/L (14-59) Alkaline Phosphatase 92 U/L (46-116) Troponin I Quantitative < 0.017 ng/mL (0.000-0.055) < 0.017 ng/mL (0.000-0.055) < 0.017 ng/mL (0.000-0.055) [id number]-[id number]-Type Natriuretic Peptide 246 pg/mL (0-124) Total Protein 7.4 g/dL (6.4-8.2) Albumin 3.4 g/dL (3.4-5.0) Albumin/Globulin Ratio 0.9 (1.0-1.7) Urine Collection Type Unknown Urine Color Yellow Urine Clarity Clear Urine pH 7.0 Urine Specific [place] 1.010 Urine Protein Negative mg/dL (NEG-TRACE) Urine Glucose (UA) Negative mg/dL (NEG) Urine Ketones (Stick) Negative mg/dL (NEG) Urine Blood Negative (NEG) Urine Nitrite Negative (NEG) Urine Bilirubin Negative (NEG) Urine Urobilinogen Dipstick 0.2 mg/dL (0.2 mg/dL) Urine Leukocyte Esterase Negative (NEG) Urine RBC 0 /HPF (0-2) Urine WBC 0 /HPF (0-4) Urine Squamous Epithelial Cells Few /LPF Urine Bacteria 0 /HPF (0-FEW) Iron Level 37 ug/dL (50-170) Total Iron Binding Capacity 472 ug/dL (250-450) Iron Saturation 8 % (15-34) Ferritin 12 ng/mL (8-252) Triglycerides Level 47 mg/dL (0-150) Cholesterol Level 193 mg/dL (0-200) LDL Cholesterol, Calculated 55 mg/dL (0-100) VLDL Cholesterol, Calculated 9 mg/dL (0-40) Non-HDL Cholesterol Calculated 64 mg/dL (0-129) HDL Cholesterol 129 mg/dL (40-60) Cholesterol/HDL Ratio 1.5 Vitamin B12 Level 437 pg/mL (247-911) 25-Hydroxy Vitamin D Total 7.9 ng/mL (30.0-100.0) Serum Folate 15.29 ng/ml (3.2-20.0) Thyroid Stimulating Hormone (TSH) 1.804 uIU/mL (0.358-3.74) Medications Current Medications Fentanyl Citrate (Fentanyl 2ml Vial) 25 mcg PRN Q15MIN PRN IV PAIN GREATER THAN 3/10 Last administered on 10/05/16 12:50; Start 10/05/16 at 11:30; Stop at 11:29; Status DC Albuterol/ Ipratropium (Duoneb) 3 ml 1X ONCE NEB Last administered on 14:10; Start 10/05/16 at 14:00; Stop 10/05/16 at 14:03; Status DC Ondansetron HCl (Zofran) 4 mg PRN Q8HRS PRN IV NAUSEA/VOMITING; Start 10/05/16 at 15:15; Stop 10/06/16 at 15:14; Status DC Fentanyl Citrate (Fentanyl 2ml Vial) 50 mcg PRN Q2HR PRN IV PAIN Last administered on 10/05/16 15:19; Start 10/05/16 at 15:15; Stop 10/06/16 at 15:14 ; Status DC Acetaminophen (Tylenol) 650 mg PRN Q4HRS PRN PO FEVER; Start 10/05/16 at 15:15 ; Stop 10/06/16 at 15:14; Status DC Nitroglycerin (Nitrostat) 0.4 mg PRN Q5MIN PRN SL CHEST PAIN; Start 10/05/16 at 15:15; Stop 10/06/16 at 15:14; Status DC Albuterol/ Ipratropium (Duoneb) 3 ml RTQID NEB ; Start 10/05/16 at 16:00; Stop 10/05/16 at 16:00; Status DC Cyclobenzaprine HCl (Flexeril) 10 mg PRN TID PRN PO MUSCLE SPASTICITY; Start at 15:30 Docusate Sodium (Colace) 100 mg BID PO ; Start 10/05/16 at 21:00 Acetaminophen/ Hydrocodone Bitart (Lortab 10/325) 1 tab PRN QID PRN PO PAIN Last administered on 10/06/16 21:15; Start 10/05/16 at 15:30 Gabapentin (Neurontin) 300 mg TID PO Last administered on 10/06/16 21:15; Start 10/05/16 at 21:00 Pantoprazole Sodium (Protonix) 40 mg DAILYAC PO Last administered on 10/06/16 07:51; Start 10/06/16 at 07:30 Acetaminophen/ Hydrocodone Bitart (Lortab 10/325) 1 tab PRN Q6HRS PRN PO PAIN Last administered on 10/07/16 02:26; Start 10/05/16 at 15:30 Morphine Sulfate 2 mg PRN Q4HRS PRN IV PAIN Last administered on 10/07/16 03: 43; Start 10/05/16 at 15:30 Albuterol/ Ipratropium (Duoneb) 3 ml RTQID NEB Last administered on 10/07/16 07:16; Start 10/05/16 at 16:00 Albuterol Sulfate (Ventolin Neb Soln) 2.5 mg PRN Q2HR PRN NEB SHORTNESS OF BREATH; Start 10/05/16 at 15:30 Enoxaparin Sodium (Lovenox 40mg Syringe) 40 mg DAILY SQ ; Start 10/06/16 at 09: 00 Ferrous Sulfate (Feosol) 325 mg DAILYWBKFT PO Last administered on 10/06/16 12 :04; Start 10/06/16 at 11:30 Aspirin (Ecotrin) 81 mg DAILYWBKFT PO Last administered on 10/06/16 12:04; Start 10/06/16 at 11:00 Active Scripts Active Oxycodone-Acetaminophen 5-325 (Oxycodone Hcl/Acetaminophen) 1 Each Tablet 2 Tab PO PRN Q4HRS PRN Cyclobenzaprine Hcl 10 Mg Tablet 10 Mg PO PRN TID PRN Colace (Docusate Sodium) 100 Mg Capsule 100 Mg PO BID Reported Hydrocodone-Apap 10-325 (Hydrocodone Bit/Acetaminophen) 1 Each Tablet 1-2 Tab PO QID PRN Last dose given 3:00pm; may take every 6 hours as needed for pain. Next dose: anytime after 9:00pm. Omeprazole 20 Mg Capsule.dr 1 Cap PO DAILY Next dose: Tomorrow am Gabapentin 300 Mg Capsule 300 Mg PO TID LAST DOSE GIVEN: Today DATE: 03/26/16 TIME: 2:00pm NEXT DOSE DUE: Tonight DATE: 03/26/16 TIME: 9:00pm Vitals/I & O Vital Sign - Last 24 Hours 10/06/16 10/06/16 10/06/16 10/06/16 09:17 11:11 11:12 13:44 Temp 98.1 98.1 Pulse 71 Resp 20 16 B/P (MAP) 136/82 (100) Pulse Ox 96 97 98 98 O2 Delivery Room Air Room Air Room Air Room Air 10/06/16 10/06/16 10/06/16 10/06/16 14:41 14:56 17:51 18:14 Temp 98.4 98.4 Pulse 75 Resp 16 18 18 B/P (MAP) 131/82 (98) Pulse Ox 98 98 98 O2 Delivery Nasal Cannula Room Air Room Air O2 Flow Rate 2.0 10/06/16 10/06/16 10/06/16 10/06/16 19:00 19:51 20:00 21:15 Temp 98.6 98.6 Pulse 74 Resp 18 B/P (MAP) 141/76 (97) Pulse Ox 98 98 O2 Delivery Room Air Room Air Room Air Room Air 10/06/16 10/06/16 10/06/16 10/06/16 22:15 22:24 22:54 23:07 Temp 98.5 98.5 Pulse 69 Resp 18 B/P (MAP) 156/87 (110) Pulse Ox 96 O2 Delivery Room Air Room Air Room Air Room Air 10/07/16 10/07/16 10/07/16 10/07/16 02:26 02:40 03:30 03:43 Resp 18 18 23 O2 Delivery Room Air Room Air Room Air Room Air 10/07/16 10/07/16 07:00 07:17 Temp 97.9 97.9 Pulse 64 Resp 18 B/P (MAP) 173/87 (115) Pulse Ox 97 98 O2 Delivery Room Air Room Air Intake and Output 10/06/16 10/06/16 10/07/16 15:00 23:00 07:00 Intake Total 360 ml 240 ml Balance 360 ml 240 ml KIANA ELLISON MD October 07, 2016 08:57
[2016-10-07] MEDS: ENOXAPARIN 40 MG/0.4 ML SYRINGE. SQ SCH (09:00)
[2016-10-07] MEDS: DOCUSATE SODIUM 100 MG CAPSULE. PO SCH (09:00)
[2016-10-07] MEDS: FERROUS SULFATE 325 MG TABLET. PO SCH (09:24)
[2016-10-07] MEDS: ASPIRIN ENTERIC COATED 81 MG TABLET.DR. PO SCH (09:24)
[2016-10-07] MEDS: PANTOPRAZOLE 40 MG TABLET.DR. PO SCH (09:25)
[2016-10-07] MEDS: GABAPENTIN 300 MG CAPSULE. PO SCH (09:25)
[2016-10-07] MEDS ORDERED: ERGOCALCIFEROL (VITAMIN D2) 50,000 UNIT CAPSULE. PO SCH (10:00)
[2016-10-07] MEDS ORDERED: ERGO500012 PO (10:52)
[2016-10-07] MEDS ORDERED: FERR325T72 PO (10:52)
--- NOTE | 2016-10-07 13:26 | PDOC3 ---
Discharge Summary [facility] Date of Admission: October 05, 2016 Discharge Date: October 07, 2016 Admitting Diagnosis 1. sob, likely 2/2 anxiety 2. mild bronchitis 3. worsening chronic lower back pain with h/o back sx 4. fatigure 5. htn 6. tobaccoism 7. normacytic anemia, iron deficiency 8. possible iv pain meds seeker 9. chest pain, 2/2 muscular issues Problems: Final Diagnosis CONSULTS card dr. Turner Brief Hospital Course Patient is a 66 year old and, history of back sx, comes for lower back pain and sob for 2 days, fatigue for months. Pt looks very calm to me, however, she c/o sob anytime, even right now. Some cough with mild yellowish sputum, denies fever, chills, chest pain. She has several back sx before, last time was with dr. Willis last year, on lortab 3 times day. However, pt refused when i offered may increase the po pain meds, and insist IV pain meds now, saying has now pain meds prescription at home and wont need any pain meds when DC. She has been feel generalized fatigue for months, saying her PCP didnot do anything about it. No N/V,. HAs diarrhea for 3 ds, watery, no abd pain. LIving alone, kids come to help. smoker, <1ppd, denies copd card on board, no intervention. pt required morphine 2mg iv q4h for 1 day. low vitd and iron, repleted. dc home, dc time 35min. General: Alert, Oriented X3, Cooperative, No acute distress Heart: Regular rate (SR), Normal S1, Normal S2, Other (2/6 systolic murmur to LLS border) Abdomen: Soft, No tenderness Extremities: No cyanosis, No edema Skin: No breakdown, No significant lesion Patient History: FH: lung cancer 33 FATHER FH: stomach cancer 32 MOTHER Family history: Hypertension (situation) 33 FATHER Problems: Disposition home CONDITION AT DISCHARGE: Improved Diet regular Scheduled Docusate Sodium (Colace), 100 MG PO BID Ergocalciferol (Vitamin D2) (Vitamin D2), 50,000 UNIT PO WEEKLY Ferrous Sulfate (Feosol), 325 MG PO DAILYWBKFT Gabapentin (Gabapentin), 300 MG PO TID, (Reported) Omeprazole (Omeprazole), 1 CAP PO DAILY, (Reported) Scheduled PRN Cyclobenzaprine Hcl (Cyclobenzaprine Hcl), 10 MG PO PRN TID PRN for MUSCLE SPASMS Hydrocodone Bit/Acetaminophen (Hydrocodone-Apap 10-325 ), 1-2 TAB PO QID PRN for PAIN, (Reported) Discontinued Medications Cyclobenzaprine Hcl (Cyclobenzaprine Hcl), 1 TAB PO TID PRN for MUSCLE SPASTICITY, (Reported) Oxycodone Hcl/Acetaminophen (Oxycodone-Acetaminophen 5-325), 2 TAB PO PRN Q4HRS PRN for MODERATE PAIN, SEVERE PAIN Follow Up pcp in 2 weeks NORMA VASQUEZ MD October 07, 2016 13:26
== END 2016-10-07 12:00 | disposition home or self-care (01) | DRG 191 ==
LOC: ER 10:33 → 5 SOUTH 14:00
PROVIDERS: ADMIT Internal Medicine; ATTEND Internal Medicine
DX: J44.1 Chronic obstructive pulmonary disease with (acute) exacerbation (principal); Z68.1 Body mass index [BMI] 19.9 or less, adult; F41.9 Anxiety disorder, unspecified; M54.16 Radiculopathy, lumbar region; R07.89 Other chest pain; E78.5 Hyperlipidemia, unspecified; F32.9 Major depressive disorder, single episode, unspecified; G89.29 Other chronic pain; I10 Essential (primary) hypertension; I25.10 Atherosclerotic heart disease of native coronary artery without angina pectoris; J44.9 Chronic obstructive pulmonary disease, unspecified; F17.210 Nicotine dependence, cigarettes, uncomplicated; K21.9 Gastro-esophageal reflux disease without esophagitis; K27.9 Peptic ulcer, site unspecified, unspecified as acute or chronic, without hemorrhage or perforation; M48.02 Spinal stenosis, cervical region; I70.8 Atherosclerosis of other arteries; D50.9 Iron deficiency anemia, unspecified; G62.9 Polyneuropathy, unspecified; K59.00 Constipation, unspecified; R63.4 Abnormal weight loss; M54.5 Low back pain; Z90.710 Acquired absence of both cervix and uterus; Z90.49 Acquired absence of other specified parts of digestive tract; Z98.1 Arthrodesis status; Z88.5 Allergy status to narcotic agent; Z88.8 Allergy status to other drugs, medicaments and biological substances; Z87.11 Personal history of peptic ulcer disease; Z85.118 Personal history of other malignant neoplasm of bronchus and lung; Z80.0 Family history of malignant neoplasm of digestive organs; Z82.49 Family history of ischemic heart disease and other diseases of the circulatory system; Z80.1 Family history of malignant neoplasm of trachea, bronchus and lung
CPT/HCPCS: 36415; 71010; 80048; 80053; 80061; 81001; 82306; 82607; 82728; 82746; 83540; 83550; 83880; 84443; 84484; 85027; 93005; 94250; 94640; 94760; 96374; 96376; J2270; J3010; J7620; 97110; 97535; 99285-25

== ENCOUNTER → 2017-01-26 | Outpatient (CLI) | payer MEDICARE, MEDICAID ==
[~2017-01-26] MED LIST changes: +DOCU-109 PO; -DOCU-27 PO; +ERGO500027 PO; +FERR325T72 PO; -HYDR-2672 PO; +HYDR-2766 PO
--- NOTE | 2017-01-26 13:41 | KCIC ---
History: Routine screening. Technique: Bilateral digital mammographic routine views were obtained with CAD - computer aided detection. Comparison: May 01, 2014. Findings: Breast Tissue Density B :The breast tissue is composed of mixed fatty and fibroglandular tissue. There are no suspicious masses, microcalcifications or areas of architectural distortion. Impression: Negative mammogram. BI-RADS Category 1: Negative. Normal interval followup. A mammogram does not have 100% sensitivity and therefore a negative imaging study should not delay further work up of a suspicious abnormality. The patient will receive a letter with the results in the mail. Patient information is entered into the reminder system with a target due date for the next screening mammogram. The patient will receive a reminder. "Our facility is accredited by the [employer] Mammography Program." Electronically signed by: Leland Ramachandran III, MD (01/26/2017 1:38 PM) [facility]
== END | disposition home or self-care (01) ==
LOC: KCIC MAMMO 10:20
PROVIDERS: ATTEND Family Medicine
DX: Z12.31 Encounter for screening mammogram for malignant neoplasm of breast (principal)
CPT/HCPCS: G0202; 77067

== ENCOUNTER 2017-02-16 22:57 | Emergency (ER) | payer MEDICARE, MEDICAID ==
[~2017-02-16] VITALS: Ht 160 cm; Wt 38.6 kg
[2017-02-16 23:41] VITALS: BP 168/74
[2017-02-16] MEDS ORDERED: NAPROXEN 500 MG TABLET PO ONE (23:55)
--- NOTE | 2017-02-17 00:01 | PHYS DOC ---
Past Medical History Past Medical History: Bronchitis, Hypertension, Other Additional Past Medical Histor: chronic back pain Past Surgical History: Hysterectomy Additional Past Surgical Histo: 3 lumbar and 1 cervical back surgery for herniated disc Alcohol Use: None Drug Use: None Adult General Chief Complaint Chief Complaint: LOWER EXT PAIN HPI HPI Patient is a 66 year old female with history of hypertension, bronchitis, who presents with mild to moderate throbbing right foot and right ankle pain that began yesterday after she lost her bearings and fell. Patient denies any loss of consciousness. Patient states the pain is worse on weight bearing. Patient states most of the pain is on top of the left foot. Review of Systems Review of Systems Constitutional: Denies fever or chills [] Musculoskeletal: right foot and right ankle pain Integument: Denies rash or skin lesions [] Neurologic: Denies headache, focal weakness or sensory changes [] Current Medications Current Medications Current Medications Medications (Trade) Dose Ordered Sig/Rosalind Start Time Stop Time Status Last Admin Dose Admin Acetaminophen/ Hydrocodone Bitart (Lortab 5/325) 1 tab 1X ONCE 02/17/17 01:00 02/17/17 01:01 DC 02/17/17 01:04 1 TAB Naproxen (Naprosyn) 500 mg 1X ONCE 02/16/17 23:55 02/16/17 23:56 DC 02/17/17 00:05 500 MG Allergies Allergies Allergies Coded Allergies Type Severity Reaction Last Updated Verified pentazocine Allergy Intermediate 10/06/16 Yes codeine Adverse Reaction Mild Nausea and Vomiting 03/24/16 Yes Physical Exam Physical Exam Constitutional: Well developed, well nourished, no acute distress, non-toxic appearance. [] Skin: Warm, dry, no erythema, no rash. [] Back: No tenderness, no CVA tenderness. [] Extremities: Right ankle with small amount of soft tissue swelling, right foot with mild amount of soft tissue swelling on top of the foot. Tenderness diffusely on the medial and anterior aspect of the right ankle and the top of right foot. Limited active range of motion to the right foot and ankle but active passive range of motion to the right foot and ankle. +2 right pedal pulse. Cap refill less than 2 seconds the right toes. Neurologic: Alert and oriented X 3, normal motor function, normal sensory function, no focal deficits noted. [] Psychologic: Affect normal, judgement normal, mood normal. [] Current Patient Data Vital Signs Vital Signs Date Time Temp Pulse Resp B/P (MAP) Pulse Ox O2 Delivery O2 Flow Rate FiO2 02/16/17 23:41 97.9 69 18 100 Room Air 97.9 EKG EKG [] Radiology/Procedures Radiology/Procedures [] Course & Med Decision Making Course & Med Decision Making Pertinent Labs and Imaging studies reviewed. (See chart for details) Patient is in the ED with complaints of right foot and left ankle pain after falling yesterday. Right foot x-rays interpreted by Dr. Marques were noted for fracture of the second proximal metatarsal. Left ankle x-rays interpreted by Dr. Marques were noted for abnormality/ questionable old fracture of the mid tib-fib otherwise no acute findings of the ankle. Left tib-fib x-rays interpreted by Dr. Marques was noted for an old tibial fracture. Patient was offered a posterior leg splint, she declined. She was given an orthopedic shoe by the Ed RN with good neurovascular exam. She was instructed to contact the orthopedic doctor tomorrow and set up a follow-up. Dragon Disclaimer Dragon Disclaimer This electronic medical record was generated, in whole or in part, using a voice recognition dictation system. Departure Departure Impression: Primary Impression: Fall from standing Additional Impressions: Fracture of second metatarsal bone of left foot Left ankle sprain Disposition: 01 HOME, SELF-CARE Condition: STABLE Referrals: DICK LAM MD (PCP) HARRISON LLANOS MD follow up in one week Patient Instructions: Ankle Sprain, Foot Fracture Additional Instructions: You were seen for left foot fracture. Ice and elevate the extremity. Contact the provided orthopedic doctor tomorrow morning and set up a follow-up appointment. Scripts Hydrocodone/Apap 5-325 (NORCO 5-325 TABLET) 1 Each Tablet 1-2 TAB PO Q4-6HRS, #10 TAB Prov: HERNAN MOSCOSO GARTH 02/17/17 Problem Qualifiers Primary Impression: Fall from standing Encounter type: initial encounter Qualified Codes: W19.XXXA - Unspecified fall, initial encounter Additional Impressions: Fracture of second metatarsal bone of left foot Encounter type: initial encounter Fracture type: closed Fracture alignment : nondisplaced Qualified Codes: S92.325A - Nondisplaced fracture of second metatarsal bone, left foot, initial encounter for closed fracture Left ankle sprain Encounter type: initial encounter Involved ligament of ankle: unspecified ligament Qualified Codes: S93.402A - Sprain of unspecified ligament of left ankle, initial encounter HERNAN MOSCOSO [employer] ATTENDANT Feb 17, 2017 00:01
[2017-02-17] MEDS ORDERED: HYDROcodone/APAP 5/325MG 1 TAB TABLET PO ONE (01:00)
[2017-02-17] MEDS ORDERED: HYDR-971 PO (01:13)
--- NOTE | 2017-02-17 07:07 | RAD ---
Tibia and fibula x-ray Indication: Pain Technique: AP and lateral views of the right tibia and fibula Comparison: None Findings: Diffuse osteopenia of the bones. No acute fracture or dislocation. Evidence of healed tibial diaphysis fracture. No significant evidence of knee joint osteoarthritis. No soft tissue abnormality. Impression: No acute findings.
--- NOTE | 2017-02-17 07:18 | RAD ---
Foot x-rays Indication: Ankle and foot pain Technique: 3 views of the right foot Comparison: None Findings: Diffuse osteopenia of the bones. There is a nondisplaced complete proximal metadiaphyseal fracture of the second and third metatarsal with no extension to the articular surface. Mild midfoot osteoarthritis. Soft tissue swelling noted of the dorsum of the foot. Impression: Nondisplaced fractures of the second and third metatarsals as described above.
--- NOTE | 2017-02-17 07:19 | RAD ---
Ankle x-ray Indication: Ankle and foot pain Technique: 3 views of the right ankle Comparison: None Findings: No acute fracture or dislocation. Old healed fracture of the tibial diaphysis. Ankle mortise is intact. Mild mid foot osteoarthritis. Small plantar calcaneal spur. Impression: As above.
== END 2017-02-17 01:27 | disposition home or self-care (01) ==
LOC: ER 22:57
DX: S92.325A Nondisplaced fracture of second metatarsal bone, left foot, initial encounter for closed fracture (principal); S93.402A Sprain of unspecified ligament of left ankle, initial encounter; I10 Essential (primary) hypertension; G89.29 Other chronic pain; Z90.710 Acquired absence of both cervix and uterus; Z98.890 Other specified postprocedural states; Z88.5 Allergy status to narcotic agent; Z88.8 Allergy status to other drugs, medicaments and biological substances; W18.39XA Other fall on same level, initial encounter; Y93.89 Activity, other specified; Y99.8 Other external cause status; Y92.89 Other specified places as the place of occurrence of the external cause
CPT/HCPCS: 73590; 73610; 73630; 99284

== ENCOUNTER → 2017-05-04 | Outpatient (CLI) | payer MEDICARE, MEDICAID ==
[~2017-05-04] MED LIST changes: +HYDR-971 PO
--- NOTE | 2017-05-04 14:06 | RAD ---
MRI Cervical Spine Without Contrast History: Neck pain, left radiculopathy for 2 months, history of surgery Technique: Multiplanar, multi sequential noncontrast MR imaging was performed of the cervical spine. Comparison: February 13, 2016 Findings: There is some motion. There again has been anterior cervical fusion C3, C4, C5 as seen previously. There is degree of osseous interbody fusion at C4-5, not clearly apparent at C3-4. Exam does not accurately evaluate for integrity of hardware. There is again osseous interbody fusion at C6-C7. There is again T2 and STIR hyperintense abnormality of the cord at the C4-5 level, not convincingly changed. There is no new abnormality cervical medullary junction. There is a small probable old lacunar infarct of the reece, more defined on this exam. There is straightening of the cervical spine. There is [id number] degenerative disc disease C5-6. C2-C3: Spinal canal and neural foramina are adequate. C3-C4: There is mild narrowing of the central canal narrowed to 9 to 10 mm by posterior osteophytes and on a developmental basis. There is mild uncovertebral degenerative change. Neural foramina are not significantly narrowed. C4-C5: Central canal is narrowed to 8 to 9 mm in part from posterior osteophytes and on a developmental basis. There is facet degenerative change greater on the left. There are uncovertebral osteophytes. There is probable [id number] neural foramina compromise bilaterally. C5-C6: There is disc osteophyte complex and bulge, mild indentation upon the ventral thecal sac greater in the left lateral recess. Central canal is narrowed to about 8 mm also with a somewhat greater degree of left lateral recess stenosis. There is uncovertebral degenerative change bilaterally. Their is likely fairly severe right greater than left neural foramina compromise. C6-C7: Central canal is borderline 10 mm. Neural foramina are not significantly narrowed. C7-T1: Spinal canal is adequate. There is facet and uncovertebral degenerative change bilaterally. There is moderate to severe right greater than left neural foramina compromise. Impression: 1. There is mild spinal stenosis as stated C3-4 to C5-6. 2. There has been anterior cervical fusion C3-C5. There is also osseous interbody fusion at C6-7. 3. There is multilevel cervical neural foramina compromise due to facet and uncovertebral degenerative change greatest bilaterally at C5-C6 and C7-T1 and to a somewhat lesser degree C4-5. 4. There is mild to moderate degenerative disc disease C5-C6. 5. There is small old lacunar infarct of the reece not as clearly seen on January 2016 exam Electronically signed by: Papo Wan MD (05/04/2017 2:02 PM) [facility]
== END | disposition home or self-care (01) ==
LOC: MRI 12:54
PROVIDERS: ATTEND Physical Medicine & Rehabilitation
DX: M48.02 Spinal stenosis, cervical region (principal); Z86.73 Personal history of transient ischemic attack (TIA), and cerebral infarction without residual deficits
CPT/HCPCS: 72141

== ENCOUNTER → 2018-01-30 | Outpatient (CLI) | payer MEDICARE ==
--- NOTE | 2018-01-30 13:10 | KCIC ---
MRI Lumbar Spine without contrast History: Right ankle pain, previous back surgeries, right sciatica down leg to the ankle, numbness and tingling Technique: Multiplanar, multi sequential noncontrast MR imaging was performed of the lumbar spine. Contrast: None Comparison: February 12, 2016 Findings: Lumbar vertebral body stature is preserved. There again has been posterolateral fusion L4-S1 at which there are bilateral pedicle screws. Exam does not accurately evaluate integrity of hardware. There is no significant marrow edema. AP alignment is similar. There are interbody grafts at L4-5 and L5-S1. L2-L3: There is negligible posterior bulge. There is mild to moderate buckling of the ligamentum flavum. There is again overall mild spinal stenosis. There is moderate to severe left and moderate right neural foramina compromise. L3-L4: There is again mild to moderate buckling of the ligamentum flavum. There is negligible bulge greater in the lateral recesses bilaterally. There is similar mild narrowing of the far lateral recesses bilaterally. There is mild to moderate neural foramina compromise bilaterally. L4-L5: There is again right laminectomy defect. There is again posterior osteophyte formation. Spinal canal is adequate. Neural foramina are poorly characterized due to artifact created by hardware, likely adequate on the right and probable moderate narrowing on the left. L5-S1: Previously seen extrusion/protrusion is no longer visualized, minimal residual posterior bulge without spinal stenosis. There is right laminectomy defect. Neural foramina are poorly characterized due to artifact by hardware, probable at least mild narrowing on the right and moderate narrowing on the left. Impression: 1. Previously seen protrusion/extrusion at L5-S1 is no longer visualized. There is again mild spinal stenosis at L2-L3, minimal narrowing of the far lateral recesses bilaterally at L3-4. There is again posterolateral fusion hardware L4-S1. 2. There is neural foramina compromise as stated most notable left greater than right at L2-L3, poorly characterized at L4-5 and L5-S1 due to hardware. Electronically signed by: Papo Wan MD (01/30/2018 1:07 PM) [facility]
== END | disposition home or self-care (01) ==
LOC: KCIC MRI 10:48
PROVIDERS: ATTEND Orthopaedic Surgery
DX: M48.061 Spinal stenosis, lumbar region without neurogenic claudication (principal); M25.78 Osteophyte, vertebrae; I10 Essential (primary) hypertension; E11.9 Type 2 diabetes mellitus without complications; J44.9 Chronic obstructive pulmonary disease, unspecified; Z80.1 Family history of malignant neoplasm of trachea, bronchus and lung; Z80.0 Family history of malignant neoplasm of digestive organs; Z86.2 Personal history of diseases of the blood and blood-forming organs and certain disorders involving the immune mechanism; Z86.711 Personal history of pulmonary embolism; Z87.11 Personal history of peptic ulcer disease; Z87.891 Personal history of nicotine dependence; Z85.118 Personal history of other malignant neoplasm of bronchus and lung; Z90.49 Acquired absence of other specified parts of digestive tract; Z90.710 Acquired absence of both cervix and uterus; Z88.8 Allergy status to other drugs, medicaments and biological substances; Z88.5 Allergy status to narcotic agent; Z88.6 Allergy status to analgesic agent
CPT/HCPCS: 72148

== ENCOUNTER → 2018-03-13 | Outpatient (CLI) | payer MEDICARE ==
[~2018-03-13] MED LIST changes: +IOHEXOL 180 MG/ML 10 ML VIAL. ONE; +methylPREDNISolone ACETATE 40 MG/ML VIAL. ONE; +methylPREDNISolone ACETATE 80 MG/ML VIAL. ONE
--- NOTE | 2018-03-13 16:13 | RAD ---
AP and Lateral Views of the Chest 03/13/2018 11:45 AM Indication: COUGH X 1 MONTH Comparison: Chest radiograph October 05, 2016. Findings: There is no focal consolidation or infiltrate identified. The cardiomediastinal silhouette is within normal limits. There is no evidence of pneumothorax or pleural effusion. No acute osseous abnormalities are identified. Impression: No evidence of acute cardiopulmonary process. Electronically signed by: Edin Townsend MD (03/13/2018 4:10 PM) [facility]
--- NOTE | 2018-03-13 23:20 | PAIN ---
DATE OF SERVICE: 03/13/2018 INITIAL CONSULTATION FOR PAIN CLINIC CHIEF COMPLAINT: Low back and right lower extremity pain. HISTORY OF PRESENT ILLNESS: This is a 68-year-old female who presents with history of pain for many years, increasing over the past 1-2 years, in the low back and right lower extremity. The patient has had lumbar surgery including fusion in the , which initially helped the pain, but now the pain is persistent, the patient reports in the low back, right lower extremity, posterior gluteus, posterior thigh, posterior calf and knee as well as anterior thigh, medial lower leg as well as the foot, with some tingling and numbness in the toes. The patient reports it as constant, throbbing, tingling, numbness, radiating into the right leg. It is aching and burning and occasional cramping at night. The patient did have a recent MRI scan of the lumbar spine, showing extensive instrumentation and interbody grafts at L4-L5 and L5-S1, posterolateral fusion L4 through S1 with mild neural foraminal compromise at L3-L4 and posterior osteophyte formation at L4-L5 and L5-S1 showing mild narrowing on the right and moderate narrowing on the left. The patient reports it is much worse with standing, walking and changing positions. Her leg was getting fatigued, especially on the right side, with any type of activity; better with sitting or lying down. The patient reports it does awaken her from her sleep about 3-4 times a night, does not affect her bowel or bladder control, but does affect her ability to walk. She is using a cane in her left hand, has it with her on her office visit today. The patient has had previous exercise therapies, physical therapies in the past as well as epidural steroid injections in the past, which seemed to help. The patient is taking hydrocodone as well as gabapentin, but with still pain, though only by about 10%. The patient rates her disability rate from 0-10, 10 being the worst, a 2 with family home responsibilities and social activity, 9 with recreational activities, 5 with self-care and 5 with life-support activities. PAST MEDICAL HISTORY: Significant for cigarette smoking, half to one pack a day, continues to smoke for the past 45 years; chronic cough; weight loss of 10 pounds over the last month; dizziness and arthritis. PAST SURGICAL HISTORY: Previous surgeries include cholecystectomy, gastric bypass, hysterectomy, left kidney excision, lumbar laminectomy x 3 with instrumentation and cervical laminectomy as well. CURRENT MEDICATIONS: Include gabapentin and hydrocodone. ALLERGIES: The patient has no known drug allergies. FAMILY HISTORY: Significant for hypertension. SOCIAL HISTORY: The patient does not drink alcohol. Does smoke one-half to one pack a day and has for 45 years, continues to smoke. The patient is single, lives locally in [place], [place]. REVIEW OF SYSTEMS: The patient's review of systems is positive for those items mentioned in the history of present illness. All systems reviewed and otherwise negative. It is complete, full and well documented on the patient's chart. PHYSICAL EXAMINATION: VITAL SIGNS: Today, the patient's blood pressure is 150/79, pulse 80, respirations 18 and temperature 98.3 degrees Fahrenheit. Height is 5 feet 3 inches, weight is 92 pounds. GENERAL: The patient is awake, alert, oriented, appropriate, has very pleasant demeanor. HEENT EXAMINATION: Shows normocephalic, atraumatic. Extraocular movements are intact and symmetrical. Oral cavity, mucous membranes are moist and pink. Dentition is intact. NECK: Shows anterior throat supple, without palpable lymphadenopathy noted. Swallow reflex is symmetrical. CHEST: Shows normal on inspection. Breath sounds are clear to auscultation bilaterally. HEART: Shows S1, S2 clear. No murmurs auscultated. ABDOMEN: Soft, nontender and nondistended. No palpable organomegaly is noted. No rebound or guarding demonstrated. BACK: Shows spine grossly in the midline. Well-healed surgical scarring noted in the lumbar distribution, with some flattening of lumbar lordotic curvature. Normal-appearing thoracic kyphotic curvature and cervical lordotic curvature. Paraspinous musculature in the lumbar distribution is symmetrical on inspection. With palpation, it shows some moderate tenderness throughout the upper, middle and lower distribution of paraspinous muscles, but only diffusely and only moderately, without significant radiation. No tenderness over the spinous processes, sacrum or sacroiliac regions. The patient has good rotational motion with some limitation, but about 10 degrees right and left as well 10 degrees extension and about 40 degrees forward flexion, without significant pain reported in any of these maneuvers. EXTREMITIES: Lower extremities show deep tendon reflexes at 1+ in the patellar and tendo calcaneus tendons are equal. Motor exam is strong with approximately 4 on a scale of 5 on the right dorsiflexion and extension and 5/5 on the left. Peripheral pulses are 1+ posterior tibial. No peripheral edema is noted. No clubbing or cyanosis. Lower extremities are warm and dry to touch, equal in color and appearance. The patient has a positive straight leg raise on the right at about 40 degrees; left is negative. Gaenslen's and Vinod's maneuvers are negative bilaterally. The patient is able to stand, has some difficulty getting up out of the chair and changing positions secondary to back pain. Walking with an antalgic gait and appears to favor the right lower extremity and again with a cane with her left hand for ambulation. SKIN: Shows warm and dry, good turgor. No edema. No sores, rashes or bruising. IMPRESSION: 1. This is a 68-year-old female with long history of low back and right lower extremity pain, worse over the past 2 years or so. 2. MRI scan of the lumbar spine as noted. 3. Cigarette smoking. 4. Chronic cough. 5. Arthritis. PLAN: Options were discussed with the patient including conservative medical management, physical therapy and interventional techniques. She has elected to proceed with interventional techniques. We discussed a caudal approach epidural steroid injection using description as well as anatomical models to describe the procedure. Risks were then discussed including, but not limited to bleeding, infection, possibility of epidural hematoma, subsequent neurological compromise, dural puncture, headaches, spinal cord and/or nerve damage, side effects of steroid medication and poor results regarding pain control. The patient understands and wished to proceed. The patient will return to the clinic in approximately 2 weeks for followup. She was counseled as to return appointment, activity level and side effects to be aware of. DIAGNOSES: Lumbar radiculopathy with lumbar spinal stenosis and post-lumbar laminectomy syndrome. PROCEDURE: Lumbar epidural steroid injection in a caudal approach using C-arm fluoroscopic guidance under sterile prep and drape using local anesthetic. MEDICATIONS INJECTED: A total of 120 mg Depo-Medrol plus 10 mL of preservative-free normal saline and 2 mL of Isovue for contrast. CONDITION AT DISCHARGE: Stable. The patient tolerated the procedure well, had no complications. RAÚL N. NG, MD DR: [facility] JOB#: [id number] / [id number]
== END | disposition home or self-care (01) ==
LOC: PNCL 10:21
PROVIDERS: ATTEND Anesthesiology
DX: M48.061 Spinal stenosis, lumbar region without neurogenic claudication (principal); M96.1 Postlaminectomy syndrome, not elsewhere classified; M54.16 Radiculopathy, lumbar region; M19.90 Unspecified osteoarthritis, unspecified site; F17.210 Nicotine dependence, cigarettes, uncomplicated; Z90.49 Acquired absence of other specified parts of digestive tract; Z90.710 Acquired absence of both cervix and uterus; Z98.84 Bariatric surgery status; Z98.890 Other specified postprocedural states; Z79.899 Other long term (current) drug therapy; Z82.49 Family history of ischemic heart disease and other diseases of the circulatory system; Z88.5 Allergy status to narcotic agent; Z88.8 Allergy status to other drugs, medicaments and biological substances; R05 Cough
CPT/HCPCS: 62323; 71046; J1030; J1040; Q9965

== ENCOUNTER → 2018-04-26 | Outpatient (CLI) | payer MEDICARE ==
[~2018-04-26] MED LIST changes: +ASPI-630 PO; -GABA-586 PO; +GABA300C18 PO; -HYDR-2766 PO; +HYDR-2769 PO; +HYDR-3164 PO; -HYDR-971 PO; -IOHEXOL 180 MG/ML 10 ML VIAL. ONE; -OXYC-323 PO; +OXYC1TAB15 PO; -methylPREDNISolone ACETATE 40 MG/ML VIAL. ONE; -methylPREDNISolone ACETATE 80 MG/ML VIAL. ONE
--- NOTE | 2018-04-26 12:02 | PAIN ---
DATE OF SERVICE: 04/26/2018 PROGRESS NOTE FOR PAIN CLINIC DIAGNOSES: Lumbar radiculopathy with lumbar spinal stenosis and post-lumbar laminectomy syndrome. HISTORY OF PRESENT ILLNESS: The patient is a 68-year-old female who returns for followup status post lumbar epidural steroid injection, caudal approach x 1 on 03/13/2018. The patient reports it only helped for a few days, the pain returned fairly significantly in the low back and bilateral lower extremities, right greater than left across the low back, posterior gluteus, posterior thighs, posterior calf, lateral thighs, anterior thighs, anterior calves and especially in the right foot. The patient reports it is aching, tingling, burning and becoming more constant, radiating, shooting pain as well. The patient reports it is a 9 on a scale of 10 at its worst, 7 on average, 6 at its least and is a 7 today. The patient reports it awakens her from sleep about every 4 hours and she has to reposition. It is worse with walking, standing, change in positions, even with prolonged sitting for more than about 30 minutes. The patient reports no new motor or sensory deficits and no new bowel or bladder incontinence or other complaints. PHYSICAL EXAMINATION: VITAL SIGNS: The patient's blood pressure is 134/78, pulse 72, respirations 16 and temperature 98.1 degrees Fahrenheit. Weight is 94 pounds. GENERAL: The patient is awake, alert, oriented, appropriate and very pleasant demeanor. HEENT: Excisional shows normocephalic and atraumatic. Extraocular movements are intact and symmetrical. Oral cavity: Mucous membranes are moist and pink. Dentition is intact. NECK: Shows anterior throat supple without palpable lymphadenopathy noted. Swallow reflex symmetrical. CHEST: Shows normal with inspection. Breath sounds clear to auscultation bilaterally. HEART: Shows S1 and S2 clear. No murmurs auscultated. ABDOMEN: Soft, nontender and nondistended. No palpable organomegaly is noted. No rebound or guarding demonstrated. BACK: Shows spine grossly in the midline. Normal-appearing thoracic kyphosis and flattening of lumbar lordotic curvature with well-healed surgical scarring noted. Lumbar paraspinous muscle shows symmetrical on inspection, on palpation shows some moderate tenderness bilaterally but only diffusely without radiation. The patient shows limited rotational motion, especially with extension but not secondary to pain secondary to limited motion. Forward flexion was performed about 40 degrees without significant pain as well. EXTREMITIES: The patient's lower extremities show deep tendon reflexes 1+ in the patellar and tendo-calcaneus tendons are equal. Motor exam is strong with 4/5 dorsiflexion and extension on the right, 5/5 on the left. Peripheral pluses are 1+ posterior tibial. No peripheral edema is noted bilaterally. Options were discussed with the patient. The patient's old chart was reviewed as her current medication regimen updated. Current review of systems updated today as well. We will hold on any further injections per her choice as she is not significantly improved after the last injection and has had a history of that in the past as well with temporary improvement. The patient was given a spinal cord stimulator information to review as she is interested in pursuing this to some degree and we would like to learn more about it. We discussed in detail today and we will give her some information as well from the stimulator of any fractures. The patient will consider this and will follow up in approximately 2 weeks to discuss this further. Also, we will give her a prescription for Medrol Dosepak today with instructions, side effects to be aware of and she will follow up once this is completed as scheduled. RAÚL NG MD DR: AURORA/loreto JOB#: [id number] / [id number]
== END | disposition home or self-care (01) ==
LOC: PNCL 09:18
PROVIDERS: ATTEND Anesthesiology
DX: M54.16 Radiculopathy, lumbar region (principal); M48.061 Spinal stenosis, lumbar region without neurogenic claudication; M96.1 Postlaminectomy syndrome, not elsewhere classified
CPT/HCPCS: G0463

== ENCOUNTER → 2018-05-18 | Outpatient (CLI) | payer MEDICARE ==
[~2018-05-18] MED LIST changes: +IOHEXOL 180 MG/ML 10 ML VIAL. ONE; +methylPREDNISolone ACETATE 40 MG/ML VIAL. ONE; +methylPREDNISolone ACETATE 80 MG/ML VIAL. ONE
--- NOTE | 2018-05-18 11:22 | PAIN ---
DATE OF SERVICE: 05/18/2018 DIAGNOSES: 1. Lumbar radiculopathy with lumbar spinal stenosis. 2. Post-lumbar laminectomy syndrome. HISTORY OF PRESENT ILLNESS: The patient is a 68-year-old female who returns for followup status post caudal epidural steroid injection x 1 with about 70% improvement only for about a week. The patient reports the pain returned. We had tried a Medrol Dosepak on her last visit, which was 04/26/2018, she did very well for again about a week or so. The pain is returning now in the bilateral lower extremities, low back, anterior thighs, posterior thighs, posterior lower legs, anterior lower legs, feet and ankles bilaterally; worse with walking, standing, changing positions; better with sitting or lying down; was waking her from sleep about every 2-4 hours now. The patient reports no new motor or sensory deficits, no new bowel or bladder incontinence, but still significant pain, rated at 10 on a scale of 10 at its worst, 8 on average, 8 at its least and is 8 today. The patient reports it is aching, tight, shooting, tingling, burning, cramping, stabbing, radiating, becoming more constant, can be severe and unbearable at times with activity, better with sitting or lying but again awaking her from sleep about every 2-4 hours. PHYSICAL EXAMINATION: VITAL SIGNS: The patient's blood pressure is 132/79, pulse 78, respirations are 18, temperature 98.2 degrees Fahrenheit. Height is 5 feet 3 inches and weight is 90 pounds. GENERAL: The patient is awake, alert, oriented, appropriate, very pleasant demeanor. HEENT: Head is normocephalic, atraumatic. Extraocular movements are intact and symmetrical. Oral cavity: Mucous membranes moist and pink. Dentition is intact. NECK: Shows anterior throat supple without palpable lymphadenopathy noted. Swallow reflex is symmetrical. CHEST: Shows normal with inspection. Breath sounds are clear to auscultation bilaterally. HEART: Shows S1, S2 clear. No murmurs auscultated. ABDOMEN: Soft, nontender, nondistended. No palpable organomegaly is noted. No rebound or guarding demonstrated. BACK: Shows spine grossly in the midline. Normal-appearing thoracic kyphosis and flattening of lumbar lordotic curvature with well-healed surgical scars noted in the lumbar distribution. Lumbar paraspinous musculature is firm and tight, moderately tender diffusely throughout the upper, middle and lower distributions bilaterally. No peripheral edema. No radiation of pain, no trigger points. EXTREMITIES: The patient's lower extremities show deep tendon reflexes at 1+ in the patellar and tendo calcaneus tendons are equal. Motor exam is approximately 4 on a scale of 5 on the right and 5/5 on the left, were equal and symmetrical as well. Peripheral pulses are 1+ posterior tibia. No peripheral edema is noted in the lower extremities. Options were discussed with the patient. The patient's old chart was reviewed as was her current medication regimen updated. Current review of systems updated today as well. We will proceed with a lumbar epidural steroid injection as the second in this series with fluoroscopic guidance. Risks were discussed including but not limited to bleeding, infection, possibility of epidural hematoma, subsequent neurologic compromise, dural puncture, headaches, spinal cord and/or nerve damage, side effects of steroid medication and poor results regarding pain control. The patient understands and wished to proceed. The patient will return to clinic in approximately 2 weeks for followup. She was counseled as to return appointment, activity level and side effects to be aware of. DIAGNOSES: 1. Lumbar radiculopathy with lumbar spinal stenosis. 2. Post-lumbar laminectomy syndrome. PROCEDURE: Lumbar epidural steroid injection, translaminar approach L5-S1 level using C-arm fluoroscopic guidance under sterile prep and drape using local anesthetic. MEDICATION INJECTED: A total of 120 mg of Depo-Medrol plus 10 mL of preservative-free normal saline and 2 mL of Isovue for contrast. CONDITION AT DISCHARGE: Stable. The patient tolerated the procedure well, had no complications. RAÚL NG MD DR: AURORA/loreto JOB#: [id number] / [id number]
== END | disposition home or self-care (01) ==
LOC: PNCL 09:34
PROVIDERS: ATTEND Anesthesiology
DX: M48.061 Spinal stenosis, lumbar region without neurogenic claudication (principal); M54.16 Radiculopathy, lumbar region; M96.1 Postlaminectomy syndrome, not elsewhere classified; Z88.5 Allergy status to narcotic agent; Z88.8 Allergy status to other drugs, medicaments and biological substances
CPT/HCPCS: 62323; J1030; J1040; Q9965

== ENCOUNTER → 2018-08-08 | Outpatient (CLI) | payer MEDICARE, MEDICAID ==
[~2018-08-08] MED LIST changes: +IOHEXOL 180 MG/ML 10 ML VIAL. IT ONE; -IOHEXOL 180 MG/ML 10 ML VIAL. ONE; +OMEP20CA10 PO; -OMEP20CA9 PO; -methylPREDNISolone ACETATE 40 MG/ML VIAL. ONE; -methylPREDNISolone ACETATE 80 MG/ML VIAL. ONE
[2018-08-08 09:56] VITALS: BP 156/70
--- NOTE | 2018-08-08 10:30 | NUR ---
Pt discharged home. VSS. Pt A&O. Pt walked out to ER entrance. Pt is driving self home against medical advise. Pt stated she has her own car and will not be having anyone drive her home.
--- NOTE | 2018-08-08 10:37 | RAD ---
Lumbar myelogram, 08/08/2018: History: Lumbar radiculopathy Under local anesthesia, aseptic conditions and fluoroscopic guidance a lumbar puncture was performed at the upper L2 level utilizing a 25-gauge Tunde spinal needle. Good clear CSF flow was obtained following which 12 cc of Omnipaque 180 was injected into the thecal sac. The spinal needle was then removed and hemostasis obtained. Appropriate digital imaging was then performed. 5.5 minutes of fluoroscopy time was utilized. 4 fluoroscopic spot images were recorded. The patient tolerated the procedure well and was sent to CT in good condition. The following findings were delineated on the myelogram: 1. There has been a previous spinal fusion from L4 through S1 with bilateral posterior fixation rods attached to the L4, L5 and S1 vertebrae via 2 screws at each level. A partially radiopaque disc spacer is present at L5-S1. A surgical clip like radiopacity is present at the L4-5 disc space. There are additional surgical clips and sutures projected over the abdomen. 2. There are anterior and posterior extradural defects at L2-3 and L3-4 producing mild central spinal stenosis at those levels, greatest at the L2-3 level. 3. The upright lateral flexion and extension views do not demonstrate significant subluxation or instability. 4. There is poor opacification of the nerve root sleeves bilaterally in the lower lumbar spine. CT lumbar spine-post myelogram, 08/08/2018: Multidetector CT imaging was performed with multiplanar reconstructions produced. The following findings are delineated: 1. At L1-2 there is mild posterior disc bulging and mild facet joint arthropathy. The central spinal canal is well-maintained. There is mild associated bilateral foraminal narrowing. 2. At L2-3 there is moderate posterior ligamentous thickening related to mild facet joint arthropathy. There is moderate broad-based posterior disc bulging. The thecal sac measures approximately 7 mm in AP diameter at the midline. There is mild to moderate bilateral foraminal encroachment. 3. At L3-4 there is mild posterior disc bulging which is most prominent laterally on both sides. There is posterior ligamentous thickening related to mild facet joint arthropathy. The thecal sac measures 7-8 mm in AP diameter at the midline. There is mild to moderate bilateral foraminal narrowing. 4. From L4 through S1 artifacts arising from the fixation devices degrade image quality. At L4-5 the disc space is partially fused. There appears to be a partial laminectomy defect on the right. No significant central spinal stenosis is evident. There is mild bony foraminal narrowing on the right. 5. At L5-S1 there is no significant central spinal stenosis. There is a density within the left neural foramen obliterating the normal perineural fat suggesting scarring versus herniated disc material. There is moderate foraminal encroachment on the right which is predominantly bony. 6. There is clumping of the nerve roots in the thecal sac at and inferior to the L4-5 level suggesting some degree of arachnoiditis. 7. There is moderate aortoiliac calcific plaquing. IMPRESSION: 1. Previous spinal fusion and instrumentation from L4 through S1. 2. Mild central spinal stenosis at L2-3 and L3-4. 3. Foraminal encroachment at several levels as described above, greatest at L5-S1. 4. Probable arachnoiditis in the lower lumbar thecal sac. PQRS Compliance Statement: One or more of the following individualized dose reduction techniques were utilized for this examination: 1. Automated exposure control 2. Adjustment of the mA and/or kV according to patient size 3. Use of iterative reconstruction technique
== END | disposition home or self-care (01) ==
LOC: RAD 08:41
PROVIDERS: ATTEND Neurological Surgery
DX: M48.061 Spinal stenosis, lumbar region without neurogenic claudication (principal); M54.16 Radiculopathy, lumbar region; M12.88 Other specific arthropathies, not elsewhere classified, other specified site; Z98.1 Arthrodesis status
CPT/HCPCS: 72132; 72265; Q9965

== ENCOUNTER → 2018-08-31 | Outpatient (CLI) | payer MEDICARE, MEDICAID ==
[2018-08-08 09:56] VITALS: BP 156/70
[~2018-08-31] MED LIST changes: -IOHEXOL 180 MG/ML 10 ML VIAL. IT ONE
--- NOTE | 2018-08-31 22:40 | PAIN ---
DATE OF SERVICE: 08/31/2018 PROGRESS NOTE FOR PAIN CLINIC: DIAGNOSES: Lumbar radiculopathy with lumbar spinal stenosis, lumbar post-laminectomy syndrome. HISTORY OF PRESENT ILLNESS: The patient is a 68-year-old female who returns for followup status post lumbar epidural steroid injections x 2, most recently 05/18/2018, reporting about 20% improvement. The patient reports the pain significantly increased in the low back, especially in the right lower extremity, posterior gluteus, posterior thigh, posterior calf as well as anterior thigh, calf as well. The patient reports it is aching, tingling, burning, shooting, radiating, becoming more constant, more severe with some fatigability in the right leg as well. The patient has recently seen her neurosurgeon who is not recommending any further surgery as the patient has a L4-S1 posterior instrumentation and fusion and is recommending other alternative measures including potential spinal cord stimulator as she has had injections, multiple physical therapies, surgery with fusion and with still persistent pain and radiculopathy, especially in the right leg. The patient reports pain is 8 on a scale of 10 at its worst, 7 on average, 7 at its least and is a 7 today. The patient reports no new motor or sensory deficits. Reports it is worse with walking, standing, changing positions, better with lying down, but it still awakens her from sleep about every 4 hours with pain in the low leg, especially in the right leg. Again, the patient's most recent injections were only about 20% improved for about 4 weeks. PHYSICAL EXAMINATION: VITAL SIGNS: The patient's blood pressure is 146/86, pulse 78, respirations 18, temperature 98.0 degrees Fahrenheit, height is 5 feet 3 inches, weight is 134 pounds. GENERAL: The patient is awake, alert, oriented, appropriate, very pleasant demeanor. HEENT: Head shows normocephalic, atraumatic. Extraocular movements are intact and symmetrical. Oral cavity, mucous membranes are moist and pink. Dentition is intact. NECK: Shows anterior throat supple without palpable lymphadenopathy noted. Swallow reflex is symmetrical. CHEST: Shows normal with inspection. Breath sounds clear to auscultation bilaterally. HEART: Shows S1, S2 clear. No murmurs auscultated. ABDOMEN: Soft, nontender, nondistended. No palpable organomegaly is noted. No rebound or guarding demonstrated. BACK: Shows spine grossly in midline, normal-appearing thoracic kyphosis and flattening of lumbar lordotic curvature. Well-healed surgical scar noted. Lumbar paraspinous muscle shows symmetrical on inspection and palpation shows some moderate tenderness diffusely bilaterally throughout the upper, middle and lower distribution of paraspinous muscles bilaterally. No radiation, no trigger points. The patient has good rotational motion, but limited extension and flexion, but not secondary to pain. EXTREMITIES: The patient's lower extremities show deep tendon reflexes 1+ in the patellar and tendo calcaneus tendons are equal. Motor exam is approximately 4 on a scale of 5 on the right, 5/5 on the left with dorsiflexion and extension. Peripheral pulses are 1+ posterior tibia. No peripheral edema is noted bilaterally. Options were discussed with the patient. The patient's old chart was reviewed as her current medication regimen updated. Current review of systems updated today as well. We will proceed with a preauthorization for spinal cord stimulator trial with temporary leads. The patient will have psychology evaluation first and we will preauthorize the patient for a spinal cord stimulator trial. We discussed the procedure in depth today using models as well as descriptions of the stimulator in the spine and we will have her followup once psychology is cleared and plan on scheduling spinal cord stimulator temporary lead at that time. RAÚL NG MD DR: AURORA/loreto JOB#: [id number] / [id number]
== END | disposition home or self-care (01) ==
LOC: PNCL 09:03
PROVIDERS: ATTEND Anesthesiology
DX: M51.16 Intervertebral disc disorders with radiculopathy, lumbar region (principal); M48.061 Spinal stenosis, lumbar region without neurogenic claudication; M96.1 Postlaminectomy syndrome, not elsewhere classified
CPT/HCPCS: G0463